=== PATIENT | male | born 1995 | race Caucasian/White ===

== ENCOUNTER 2022-03-18 01:59 | Observation (INO) ==
[2022-03-18] MEDS ORDERED: dilTIAZem HCl 5 MG/ML 5 ML VIAL IV ONE ×2 (02:21→02:28)
[2022-03-18] MEDS ORDERED: STAT IV Infusion **Titration per Protocol STA (02:26)
[2022-03-18] MEDS ORDERED: dilTIAZem HCl 5 MG/ML 5 ML VIAL IV STA (02:26)
--- NOTE | 2022-03-18 02:29 | Emergency Department Note ---
History of Present Illness General Chief complaint: Arrhythmia/Palpitations Stated complaint: RAPID HEARTBEAT Time Seen by Provider: 03/18/22 02:16 History of Present Illness 26-year-old male presents emergency department sudden onset of rapid heart rate. Patient states he was resting and had a sudden onset. Patient has a prior cardiac history in which he had cardiac surgery when he was a child at [facility]. Patient states recent alcohol 2 beers this evening. Patient denies nausea vomiting chest pain patient denies history of thyroid problems. Patient denies shortness of breath. Patient denies pleuritic chest pain denies calf swelling. Denies a history of anemia. Patient denies any history of prior cardiac dysrhythmia. Past Med/Surg History Social History Smoking Status: Current every day smoker Tobacco Type: E-cigarettes / Vaping Feels Safe at Home: Yes Immunizations: Past medical history includes cardiac surgery when he was a child at [facility] for closure related to a valve and the cardiac chambers Review of Systems A total of 10 systems reviewed and were otherwise negative Constitutional: no fever Ear, Nose, Mouth, Throat: no ear pain Respiratory: no cough Cardiovascular: no chest pain Physical Exam Vital Signs Vital Signs - 24 hr 03/18/22 02:03 03/18/22 02:22 03/18/22 02:30 Temperature 36.8 C Temperature Source Temporal Artery Scan Pulse Rate 189 H 175 H 135 H Respiratory Rate 20 23 19 Respiratory Effort / Characteristics Non-Labored Respiratory Depth Normal Blood Pressure 162/83 H 147/77 H 139/83 Blood Pressure Mean 109 100 101 Pulse Oximetry 98 100 99 Oxygen Delivery Method Room Air Room Air Room Air Sepsis Recent Fever Within 48 Hours No Sepsis New/Unexplained Change in Mental Status N/A Sepsis Action Taken by Nursing No Action Required 03/18/22 02:42 03/18/22 02:45 03/18/22 03:00 Temperature Temperature Source Pulse Rate 139 H 108 H 108 H Respiratory Rate 17 19 20 Respiratory Effort / Characteristics Respiratory Depth Blood Pressure 129/71 135/77 132/88 Blood Pressure Mean 90 96 102 Pulse Oximetry 98 98 98 Oxygen Delivery Method Room Air Room Air Room Air Sepsis Recent Fever Within 48 Hours Sepsis New/Unexplained Change in Mental Status Sepsis Action Taken by Nursing 03/18/22 03:15 Temperature Temperature Source Pulse Rate 115 H Respiratory Rate 17 Respiratory Effort / Characteristics Respiratory Depth Blood Pressure 134/87 Blood Pressure Mean 102 Pulse Oximetry 98 Oxygen Delivery Method Room Air Sepsis Recent Fever Within 48 Hours Sepsis New/Unexplained Change in Mental Status Sepsis Action Taken by Nursing GENERAL: Patient is awake alert in no acute distress patient is resting comfortably and showing no signs of anxiety EYES: The conjunctivae are clear. The pupils are round and reactive. EARS, NOSE, MOUTH AND THROAT: The nose is without any evidence of any deformity. Mucous membranes are moist. Tongue is midline. NECK: The neck is nontender and supple. RESPIRATORY: Normal respiratory effort is noted there is no evidence of wheezing rhonchi or rales CARDIOVASCULAR: Tachycardic no murmurs rubs or gallops normal S1 normal S2. GASTROINTESTINAL: The abdomen is soft. Abdomen is nontender. PELVIS: The Pelvis is stable. No tenderness to palpation is noted. BACK: No midline tenderness or or step-off noted range of motion in flexion extension as well as rotation no signs of muscle spasm noted MUSCULOSKELETAL/EXTREMITIES: There is no evidence of gross deformity full range of motion is noted in the hips and shoulders. SKIN: There is no obvious evidence of any rash. There are no petechiae, pallor or cyanosis noted. NEUROLOGIC: Patient is awake alert and oriented x3 strength is symmetric Course Reevaluation(s) Reevaluation #1: Patient was started on IV Cardizem after IV Cardizem bolus x2 remains in atrial fibrillation rate of around 110 but normotensive. Time: 03:55 Consultations Consultation #1: [facility] for admission Time: 03:56 Administered Medications Diltiazem HCl 125 mg/ Dextrose 125 mls @ 5 mls/hr IV .Q24H [facility]; Protocol Stop: 04/17/22 02:29 Last Titration: 03/18/22 03:49 Dose: 10 mg/hr, 10 mls/hr Documented By: PEDRO Co-signed By: NO Admin: 03/18/22 02:41 Dose: 5 mg/hr, 5 mls/hr Documented By: JIMI Co-signed By: PEDRO Discontinued Medications Diltiazem HCl (Diltiazem Hcl 5 Mg/Ml 5 Ml Vial) Confirm Administered Dose 25 mg IV .STK-MED ONE Stop: 03/18/22 02:22 Last Admin: 03/18/22 02:37 Dose: Not Given Documented By: NO Diltiazem HCl (Diltiazem Hcl 5 Mg/Ml 5 Ml Vial) 25 mg IV NOW STA Stop: 03/18/22 02:27 Last Admin: 03/18/22 02:41 Dose: 25 mg Documented By: JIMI Co-signed By: PEDRO Diltiazem HCl (Diltiazem Hcl 5 Mg/Ml 5 Ml Vial) 20 mg IV ONCE ONE Stop: 03/18/22 02:29 Last Admin: 03/18/22 02:20 Dose: 20 mg Documented By: NO Co-signed By: PEDRO Critical Care Time Prolonged Care Time Prolonged Care Time: Yes Total Prolonged Care Time: 45 I have personally spent greater than 45 minutes of critical care time in the direct management of this patient. This includes bedside care, interpretation of diagnostic studies, and testing, discussion with consultants, patient, and family members, and other required patient management activities. These minutes are in excess of all separately billable procedures. Medical Decision Making Medical Records Attestation: I reviewed the patient's medical records. Home Medications Current Medication List: was personally reviewed by me Laboratory Data Attestation: I reviewed the patient's lab results. Result diagrams: 03/18/22 02:26 03/18/22 02:26 Lab Results 03/18/22 03/18/22 03/18/22 Range/Units 02:26 02:26 02:26 WBC 9.16 (4.8-10.8) K/ul RBC 4.84 (4.63-6.08) M/uL Hgb 15.7 (14.0-18.0) g/dl Hct 43.9 (40.1-51.0) % MCV 90.7 (80.0-100.0) fL MCH 32.4 (25.0-34.0) pg MCHC 35.8 (32.0-36.0) g/dL RDW Std Deviation 39.8 (36.4-46.3) fL RDW Coeff of Veronique 12.2 (11.5-14.5) % Plt Count 326 (130-400) K/uL MPV 8.9 L (9.4-12.4) fL Immature Gran % (Auto) 0.2 % Neut % (Auto) 53.7 % Lymph % (Auto) 31.8 % Early % (Auto) 7.3 % Eos % (Auto) 6.2 % Baso % (Auto) 0.8 % Neut # (Auto) 4.92 (1.4-6.5) K/uL Lymph # (Auto) 2.91 (1.2-3.4) K/uL Early # (Auto) 0.67 (0.24-0.82) K/uL Eos # (Auto) 0.57 H (0-0.50) K/uL Baso # (Auto) 0.07 (0-0.2) K/uL Immature Gran # (Auto) 0.02 (0.00-0.02) K/uL PT 10.1 (9.0-12.0) Seconds INR 0.9 (0.9-1.1) Sodium 141 (136-145) mmol/L Potassium 3.8 (3.5-5.1) mmol/L Chloride 106 (98-107) mmol/L Carbon Dioxide 28 (21-32) mmol/L Anion Gap 7 (3-11) BUN 9 (6-23) mg/dl Creatinine 1.25 (0.6-1.4) mg/dl Est Cr Clr Drug Dosing 118.1 ml/min Est GFR ( Amer) 92.2 ml/min Est GFR (Non-Af Amer) 79.5 ml/min BUN/Creatinine Ratio 7.2 L (10-20) Glucose 136 H (70-99(Fasting)) mg/dl Calcium 9.5 (8.5-10.1) mg/dl Magnesium 2.1 (1.7-2.4) mg/dl Total Bilirubin 0.5 (0.2-1.0) mg/dl AST 17 (13-39) U/L ALT 24 (7-52) U/L Alkaline Phosphatase 77 (34-104) U/L Troponin I High Sens 4.2 (0-20) pg/ml Total Protein 7.1 (6.0-8.3) gm/dl Albumin 4.5 (3.4-5.0) gm/dl Globulin 2.6 (2.5-4.0) gm/dl Albumin/Globulin Ratio 1.7 (0.9-2) TSH (0.300-4.500) uIu/ml 11/05/22 Range/Units 02:26 WBC (4.8-10.8) K/ul RBC (4.63-6.08) M/uL Hgb (14.0-18.0) g/dl Hct (40.1-51.0) % MCV (80.0-100.0) fL MCH (25.0-34.0) pg MCHC (32.0-36.0) g/dL RDW Std Deviation (36.4-46.3) fL RDW Coeff of Veronique (11.5-14.5) % Plt Count (130-400) K/uL MPV (9.4-12.4) fL Immature Gran % (Auto) % Neut % (Auto) % Lymph % (Auto) % Early % (Auto) % Eos % (Auto) % Baso % (Auto) % Neut # (Auto) (1.4-6.5) K/uL Lymph # (Auto) (1.2-3.4) K/uL Early # (Auto) (0.24-0.82) K/uL Eos # (Auto) (0-0.50) K/uL Baso # (Auto) (0-0.2) K/uL Immature Gran # (Auto) (0.00-0.02) K/uL PT (9.0-12.0) Seconds INR (0.9-1.1) Sodium (136-145) mmol/L Potassium (3.5-5.1) mmol/L Chloride (98-107) mmol/L Carbon Dioxide (21-32) mmol/L Anion Gap (3-11) BUN (6-23) mg/dl Creatinine (0.6-1.4) mg/dl Est Cr Clr Drug Dosing ml/min Est GFR ( Amer) ml/min Est GFR (Non-Af Amer) ml/min BUN/Creatinine Ratio (10-20) Glucose (70-99(Fasting)) mg/dl Calcium (8.5-10.1) mg/dl Magnesium (1.7-2.4) mg/dl Total Bilirubin (0.2-1.0) mg/dl AST (13-39) U/L ALT (7-52) U/L Alkaline Phosphatase (34-104) U/L Troponin I High Sens (0-20) pg/ml Total Protein (6.0-8.3) gm/dl Albumin (3.4-5.0) gm/dl Globulin (2.5-4.0) gm/dl Albumin/Globulin Ratio (0.9-2) TSH 4.298 (0.300-4.500) uIu/ml Imaging Data Attestation: I personally reviewed and interpreted this imaging study as follows: ECG Data Attestation: I personally reviewed and interpreted this ECG as follows: Additional Comments: EKG interpreted by me rapid atrial fibrillation, incomplete right bundle branch block, left axis deviation, no obvious ST segment elevation or depression MDM Narrative Medical decision making differential diagnosis cardiac dysrhythmia, electrolyte abnormality, metabolic derangement. Plan is to check labs, EKG, treat for rapid atrial fibrillation Impression & Plan Atrial fibrillation with RVR Discharge Plan Visit Data Chief Complaint: Arrhythmia/Palpitations Stated Complaint: RAPID HEARTBEAT ED Provider: Jamar Muro Discharge Problem: Atrial fibrillation with RVR Patient Disposition: Being Evaluated by Hospitalist Forms Stand Alone Forms: [facility] Referrals Referrals: PCP,NO [Primary Care Provider] -
[2022-03-18] MEDS: dilTIAZem HCL 125 MG in DEXTROSE 5% 100 ML IV SCH ×2 (02:41→14:49)
[2022-03-18 02:43] LABS: Basophils # (auto) 0.07 K/uL (0-0.2); Basophils % (auto) 0.8 %; Eosinophils # (auto) 0.57 K/uL (0-0.50); Eosinophils % (auto) 6.2 %; Hematocrit (blood only) 43.9 % (40.1-51.0); Hemoglobin 15.7 g/dl (14.0-18.0); Immature Granulocytes # (auto) 0.02 K/uL (0.00-0.02); Immature Granulocytes % (auto) 0.2 %; Lymphocytes # (auto) 2.91 K/uL (1.2-3.4); Lymphocytes % (auto) 31.8 %; Mean Corpuscular Hemoglobin 32.4 pg (25.0-34.0); Mean Corpuscular Hgb Conc 35.8 g/dL (32.0-36.0); Mean Corpuscular Volume 90.7 fL (80.0-100.0); Mean Platelet Volume 8.9 fL (9.4-12.4); Monocytes # (auto) 0.67 K/uL (0.24-0.82); Monocytes % (auto) 7.3 %; Neutrophils # (auto) 4.92 K/uL (1.4-6.5); Neutrophils % (auto) 53.7 %; Platelet Count 326 K/uL (130-400); RDW Coefficient of Variation 12.2 % (11.5-14.5); RDW Standard Deviation 39.8 fL (36.4-46.3); Red Blood Count 4.84 M/uL (4.63-6.08); White Blood Count 9.16 K/ul (4.8-10.8)
[2022-03-18 03:12] LABS: Troponin I High Sensitivity 4.2 pg/ml (0-20)
[2022-03-18 03:13] LABS: INR 0.9 (0.9-1.1); Prothrombin Time 10.1 Seconds (9.0-12.0)
[2022-03-18 03:17] LABS: Albumin Globulin Ratio 1.7 (0.9-2); Albumin Level 4.5 gm/dl (3.4-5.0); BUN Creatinine Ratio 7.2 (10-20); Bilirubin,Total 0.5 mg/dl (0.2-1.0); Calcium 9.5 mg/dl (8.5-10.1); Creatinine Clr Calc Pharmacy 118.1 ml/min; Est GFR (African American) 92.2 ml/min; Est GFR (Non-African American) 79.5 ml/min; Globulin 2.6 gm/dl (2.5-4.0); Magnesium 2.1 mg/dl (1.7-2.4); Potassium 3.8 mmol/L (3.5-5.1); Total Protein 7.1 gm/dl (6.0-8.3)
[2022-03-18] MEDS ORDERED: POTASSIUM CHLORIDE CRTAB 20 MEQ TABCR PO STA (03:40)
[2022-03-18] MEDS ORDERED: METOPROLOL TARTRATE 25 MG TAB PO STA (03:43)
[2022-03-18] MEDS ORDERED: LACTATED RINGER'S 1,000 ML IV ONE (03:43)
[2022-03-18] MEDS ORDERED: METOPROLOL TARTRATE 1 MG/ML VIAL IV STA (04:30)
--- NOTE | 2022-03-18 04:32 | History & Physical Report ---
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 fib if CT head negative for bleed TTE, Cardiology consult Re: New onset A. fib Check hemoglobin A1c DVT prophylaxis. IV heparin if no bleed on CT head Full code Text document was generated using Contrib recognition software. It may contain grammatical or spelling errors. Kindly contact undersigned for clarification of any documentation item in question. History of Present Illness Chief Complaint: Palpitations, shortness of breath Primary Care Provider: NO PCP History obtained from patient, family, and records. Medical history significant for congenital heart disease (ASD status post surgery, tricuspid valve abnormality as per patient), borderline hypertension as per patient, ongoing tobacco abuse. Patient has had episodic palpitations for about 5 years now. Occurring 3-4 times a year. Short-lived episodes spontaneously resolving. No specific triggers. 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 Victor) aware of palpitations as per patient. Patient relocated to [facility] about 2 years ago for work. Patient was getting ready for bed last night when he experienced palpitations more pronounced and prolonged. Shortness of breath which patient attributes to anxiety. 2 bottles of beer last night which is usual for him. Denies EtOH abuse. No chest pain. Transient headache symptoms. Patient noted to be in rapid A. fib upon arrival at the ER. IV Cardizem infusion initiated. 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 Past Med/Surg History Social History Smoking Status: Light tobacco smoker Tobacco Type: E-cigarettes / Vaping Hx Alcohol Use: Yes (social drinker) Hx Substance Use: No Preferred Language: Norwegian Communication Ability: Effective Seat Maker Required: No Beliefs That Will Affect Care: None Current Living Situation: Significant Other Feels Safe at Home: Yes Safety Concerns: Feels Safe At This Time Review of Systems Review of Systems: As per HPI, all other systems reviewed and negative Physical Exam Physical Exam: GENERAL: Comfortable, obese, slightly anxious, no respiratory distress SKIN: Normal color, warm HEENT: [place] palpebral conjunctivae, no ptosis, dry buccal mucosa NECK : Supple, no tenderness CHEST : CTA, no tenderness HEART : Irregular, tachycardic, no obvious murmurs ABDOMEN: Some distention, nontender EXTREMITIES : No LE swelling/tenderness, no other conspicuous deformities noted NEUROLOGIC : Coherent, no facial asymmetry, no other gross focality Results & Data Results & Data ([facility]) Vital Signs (Past 12 Hours) Vital Signs Temp Pulse Resp BP Pulse Ox O2 Del Method 03/18/22 04:00 107 H 18 151/77 H 99 Room Air 03/18/22 03:45 98 H 16 130/82 99 Room Air 03/18/22 03:30 110 H 16 126/106 H 97 Room Air 03/18/22 03:15 115 H 17 134/87 98 Room Air 03/18/22 03:00 108 H 20 132/88 98 Room Air 03/18/22 02:45 108 H 19 135/77 98 Room Air 03/18/22 02:42 139 H 17 129/71 98 Room Air 03/18/22 02:30 135 H 19 139/83 99 Room Air 03/18/22 02:22 175 H 23 147/77 H 100 Room Air 03/18/22 02:03 36.8 C 189 H 20 162/83 H 98 Room Air Laboratory Results Laboratory Results WBC 9.16 K/ul (4.8-10.8) 03/18/22 02:26 RBC 4.84 M/uL (4.63-6.08) 03/18/22 02:26 Hgb 15.7 g/dl (14.0-18.0) 03/18/22 02:26 Hct 43.9 % (40.1-51.0) 03/18/22 02:26 MCV 90.7 fL (80.0-100.0) 03/18/22 02:26 MCH 32.4 pg (25.0-34.0) 03/18/22 02:26 MCHC 35.8 g/dL (32.0-36.0) 03/18/22 02:26 RDW Std Deviation 39.8 fL (36.4-46.3) 03/18/22 02:26 RDW Coeff of Veronique 12.2 % (11.5-14.5) 03/18/22 02:26 Plt Count 326 K/uL (130-400) 03/18/22 02:26 MPV 8.9 fL (9.4-12.4) L 03/18/22 02:26 Immature Gran % (Auto) 0.2 % 03/18/22 02:26 Neut % (Auto) 53.7 % 03/18/22 02:26 Lymph % (Auto) 31.8 % 03/18/22 02:26 [place]ley % (Auto) 7.3 % 03/18/22 02:26 Eos % (Auto) 6.2 % 03/18/22 02:26 Baso % (Auto) 0.8 % 03/18/22 02:26 Neut # (Auto) 4.92 K/uL (1.4-6.5) 03/18/22 02:26 Lymph # (Auto) 2.91 K/uL (1.2-3.4) 03/18/22 02:26 [place]ley # (Auto) 0.67 K/uL (0.24-0.82) 03/18/22 02:26 Eos # (Auto) 0.57 K/uL (0-0.50) H 03/18/22 02:26 Baso # (Auto) 0.07 K/uL (0-0.2) 03/18/22 02:26 Immature Gran # (Auto) 0.02 K/uL (0.00-0.02) 03/18/22 02:26 PT 10.1 Seconds (9.0-12.0) 03/18/22 02:26 INR 0.9 (0.9-1.1) 03/18/22 02:26 Sodium 141 mmol/L (136-145) 03/18/22 02:26 Potassium 3.8 mmol/L (3.5-5.1) 03/18/22 02:26 Chloride 106 mmol/L (98-107) 03/18/22 02:26 Carbon Dioxide 28 mmol/L (21-32) 03/18/22 02:26 Anion Gap 7 (3-11) 03/18/22 02:26 BUN 9 mg/dl (6-23) 03/18/22 02:26 Creatinine 1.25 mg/dl (0.6-1.4) 03/18/22 02:26 Est Cr Clr Drug Dosing 118.1 ml/min 03/18/22 02:26 Est GFR ( Amer) 92.2 ml/min 03/18/22 02:26 Est GFR (Non-Af Amer) 79.5 ml/min 03/18/22 02:26 BUN/Creatinine Ratio 7.2 (10-20) L 03/18/22 02:26 Glucose 136 mg/dl (70-99(Fasting)) H 03/18/22 02:26 Calcium 9.5 mg/dl (8.5-10.1) 03/18/22 02:26 Magnesium 2.1 mg/dl (1.7-2.4) 03/18/22 02:26 Total Bilirubin 0.5 mg/dl (0.2-1.0) 03/18/22 02:26 AST 17 U/L (13-39) 03/18/22 02:26 ALT 24 U/L (7-52) 03/18/22 02:26 Alkaline Phosphatase 77 U/L (34-104) 03/18/22 02:26 Troponin I High Sens 4.2 pg/ml (0-20) 03/18/22 02:26 Total Protein 7.1 gm/dl (6.0-8.3) 03/18/22 02:26 Albumin 4.5 gm/dl (3.4-5.0) 03/18/22 02:26 Globulin 2.6 gm/dl (2.5-4.0) 03/18/22 02:26 Albumin/Globulin Ratio 1.7 (0.9-2) 03/18/22 02:26 TSH 4.298 uIu/ml (0.300-4.500) 03/18/22 02:26 SARS-CoV-2, RNA, NAAT NEGATIVE (NEGATIVE) 03/18/22 03:57 Diagnostic Findings Chest x-ray as per my interpretation cardiomegaly, atelectasis EKG as per my interpretation : Rate 150, A. fib, LAD, LAFB, incomplete RBBB, T wave abnormality septal leads
[2022-03-18] MEDS ORDERED: LORazepam 0.5 MG TAB PO PRN (04:35)
[2022-03-18] MEDS ORDERED: PROMETHAZINE HCL 12.5 MG in SODIUM CHLORIDE 0.9% 50 ML IV PRN (04:35)
[2022-03-18] MEDS ORDERED: traMADol HCL 50 MG TABLET PO PRN (04:35)
[2022-03-18] MEDS ORDERED: LORazepam 0.5 MG TAB PO STA (04:38)
[2022-03-18] MEDS ORDERED: ACETAMINOPHEN 325 MG TAB PO PRN (05:18)
[2022-03-18] MEDS ORDERED: NITROGLYCERIN SL 0.4 MG/TAB TAB SL PRN (05:18)
[2022-03-18 06:38] LABS: Partial Thromboplastin Ratio 0.9; Partial Thromboplastin Time 25.9 Seconds (21.0-31.0)
--- NOTE | 2022-03-18 08:24 | CT Scan Report ---
CT head/brain wo con CLINICAL HISTORY: dickinson Technique: Contiguous axial CT images of the head were acquired from the base of the skull to the lise kendal without intravenous contrast administration. Images were viewed in brain, subdural and [facility]. Automated dose lowering techniques and/or adjustment according to patient size were utilized for this exam. Comparison: None available at the time of this dictation. Findings: The ventricles, basal cisterns, and cerebral sulci are normal. There is no acute intracranial hemorrh age or evidence of acute territorial infarction. Neither mass effect, shift of the midline structures , nor abnormal extra-axial fluid collections are shown. Imaged portions of the paranasal sinuses and mastoid air cells are clear. The orbits appear normal. There are no acute fractures of the calvaria or scalp swelling. Impression: No acute intracranial hemorrhage, no evidence of acute territorial infarction or other acute intracra nial disease process. ACT 112: Negative or not required by law. Electronically signed by: Chuck Dale M.D. 03/18/2022 8:23 AM
[2022-03-18 09:09] LABS: Estimated Average Glucose 105 mg/dl; Hemoglobin A1C 5.3 % (4.5-5.6)
[2022-03-18] MEDS: Heparin IV Adult Wt-Based Standard *NO* Bolus Protocol IV SCH ×4 (09:21→10:31)
[2022-03-18] MEDS: HEPARIN SODIUM/DEXTROSE 25,000 UNITS/500 ML BAG IV SCH (10:37)
--- NOTE | 2022-03-18 10:42 | Hospitalist Progress Note ---
Date of Service March 18, 2022 Assessment & Plan (1) Atrial fibrillation with RVR: Plan: Atrial fibrillation with RVR New diagnosis H/O Congenital heart disease: ASD s/p surgery, tricuspid valve abnormality as per patient --CXR: No acute findings as per my interpretation --ECHO: Normal LV chamber size and wall thickness. Low normal LV systolic function with borderline global hypokinesis, EF 50 to 55%. No segmental left ventricle wall motion abnormality. Right ventricular cavity is normal. Reduced RV systolic function by TAPSE. Questionable tricuspid annuloplasty ring without significant stenosis or regurgitation. --TSH: Within normal limits -- On IV Cardizem, heparin drip Started on metoprolol 25 mg twice a day Consulted cardiology Currently heart rate is controlled Headache --CT Head:No acute intracranial hemorrhage, no evidence of acute territorial infarction or other acute intracranial disease process. Resolved Borderline hypertension as per patient BP stable Monitor Ongoing tobacco abuse Inventory Clerk to quit smoking DVT Px: IV heparin Code Status Full code Admission and Anticipated Discharge Date Admission Date: March 18, 2022 Subjective Patient is seen and examined at bedside Headache, dyspnea resolved Still has intermittent palpitations Denies any chest pain, dizziness, nausea, abdominal pain Currently heart rate is controlled Offers no other complaints Review of Systems Review of Systems: All systems reviewed & are unremarkable except as noted in Subjective Physical Exam Physical Exam: Physical Exam: Vitals signs as noted above General Appearance:Moderately built and nourished, no apparent distress Head: normocephalic, Atraumatic Eyes: normal inspection, EOMI Neck: supple, Trachea midline Respiratory/Chest: Normal breath sounds, CTA, No accessory muscle use Cardiovascular: Irregularly irregular, No murmur Abdomen/GI:Soft, Non tender, Bowel sounds present Extremities/Musculoskeletal:normal inspection, no edema Neurologic/Psych:AAOX3, grossly no focal neurological deficits Skin: normal color, warm Results & Data Results & Data ([facility]) Vital Signs (Past 12 Hours) Vital Signs Temp Pulse Pulse Pulse Resp BP BP 03/18/22 09:24 71 03/18/22 08:57 73 114/68 03/18/22 07:53 36.8 C 66 19 125/60 03/18/22 06:11 86 03/18/22 06:06 03/18/22 05:00 84 20 140/91 03/18/22 05:18 36.9 C 88 16 142/89 H 03/18/22 04:45 101 H 19 116/94 03/18/22 04:31 107 H 18 164/87 H 03/18/22 04:15 109 H 17 128/89 03/18/22 04:48 105 H 116/94 03/18/22 04:00 107 H 18 151/77 H 03/18/22 03:45 98 H 16 130/82 03/18/22 03:30 110 H 16 126/106 H 03/18/22 03:15 115 H 17 134/87 03/18/22 03:00 108 H 20 132/88 03/18/22 02:45 108 H 19 135/77 03/18/22 02:42 139 H 17 129/71 03/18/22 02:30 135 H 19 139/83 03/18/22 02:22 175 H 23 147/77 H 03/18/22 02:03 36.8 C 189 H 20 162/83 H Pulse Ox O2 Del Method 03/18/22 09:24 03/18/22 08:57 03/18/22 07:53 97 Room Air 03/18/22 06:11 03/18/22 06:06 Room Air 03/18/22 05:00 95 Room Air 03/18/22 05:18 98 Room Air 03/18/22 04:45 98 Room Air 03/18/22 04:31 97 Room Air 03/18/22 04:15 98 Room Air 03/18/22 04:48 03/18/22 04:00 99 Room Air 03/18/22 03:45 99 Room Air 03/18/22 03:30 97 Room Air 03/18/22 03:15 98 Room Air 03/18/22 03:00 98 Room Air 03/18/22 02:45 98 Room Air 03/18/22 02:42 98 Room Air 03/18/22 02:30 99 Room Air 03/18/22 02:22 100 Room Air 03/18/22 02:03 98 Room Air
--- NOTE | 2022-03-18 12:52 | XRay Report ---
XR chest 1V portable CLINICAL HISTORY: Dysrhythmia TECHNIQUE: Single frontal radiograph of the chest was obtained. Comparison: None available at the time of this dictation. FINDINGS: No lines and tubes are seen. Cardiomegaly is noted. The lungs are clear. No evidence of pleural effus ion or pneumothorax. IMPRESSION: No acute chest disease. ACT 112: Negative or not required by law. Electronically signed by: Chuck Dale M.D. 03/18/2022 12:50 PM
--- NOTE | 2022-03-18 13:24 | Electrocardiogram Report ---
Test Reason : Blood Pressure : / mmHG Vent. Rate : 153 BPM Atrial Rate : 159 BPM P-R Int : 000 ms QRS Dur : 110 ms QT Int : 284 ms P-R-T Axes : 000 -13 046 degrees QTc Int : 453 ms Atrial fibrillation with rapid ventricular response Incomplete right bundle branch block Abnormal ECG No previous ECGs available Confirmed by Christiano Zelaya ([id number]) on 03/18/2022 1:23:33 PM Referred By: REFERRED SELF Confirmed By:Christiano Zelaya
[2022-03-18] MEDS ORDERED: METOPROLOL TARTRATE 25 MG TAB PO ONE (13:30)
--- NOTE | 2022-03-18 13:30 | Electrocardiogram Report ---
Test Reason : Blood Pressure : / mmHG Vent. Rate : 097 BPM Atrial Rate : 094 BPM P-R Int : 000 ms QRS Dur : 108 ms QT Int : 300 ms P-R-T Axes : 000 000 046 degrees QTc Int : 381 ms Atrial fibrillation Incomplete right bundle branch block Abnormal ECG When compared with ECG of 18-MAR-2022 02:12, (unconfirmed) Vent. rate has decreased BY [address] no longer depressed in Anterior leads Confirmed by Christiano Zelaya ([id number]) on 03/18/2022 1:29:42 PM Referred By: REFERRED SELF Confirmed By:Christiano Zelaya
--- NOTE | 2022-03-18 14:50 | Cardiology Consultation ---
Date of Consultation March 18, 2022 Assessment & Plan (1) Atrial fibrillation with RVR: (2) History of repair of congenital atrial septal defect (ASD): Plan The pathophysiology and treatment options for atrial fibrillation were discussed with the patient and his parents at great lengths today. Well he is very young to experience new onset atrial fibrillation it is not completely surprising given his history of ASD closure as an adolescent. At this point, I believe the most prudent course of action would be to proceed with transesophageal echocardiogram guided DC cardioversion on Sunday morning. He will be maintained on a heparin drip and likely discharged home on DOAC for 30 days. With his [id number] score being 0 long-term anticoagulation will likely not be necessary Continue p.o. metoprolol tartrate and diltiazem drip for now, the latter of which may be titrated off Follow and replete electrolytes as necessary Patient should be made n.p.o. for anticipated ARIAS cardioversion on 03/20/2022 History of Present Illness Reason for Consultation: New onset atrial fibrillation with rapid ventricular response Requesting Physician: [facility] hospitalist group Attending Physician: Matthew Glasgow MD History of Present Illness It was my pleasure to see Mr. Llamas in cardiac consultation today March 18, 2022. He is a very pleasant 26-year-old gentleman who presented to [facility] early on the a.m. of 03/18/2022 with complaints of palpitations. The patient states he was in his normal state of health until approximately 1 AM when he felt his heart start to race. He states he has had similar episodes in the past but were very fleeting in nature. After this episode persisted for an hour he presented the emergency room for further evaluation. Upon arrival he was found to be in new onset atrial fibrillation with rapid ventricular response which is a new diagnosis for him. He does carry history of ASD closure at the age of 14. 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 He was last seen by his primary communications technician 3 years ago as per recommendations. He has not had any medical care locally. Currently he is resting comfortably with his parents at the bedside. Allergies Allergy/AdvReac Type Severity Reaction Status Date / Time No Known Allergies Allergy Verified 03/18/22 13:44 Patient History Social History Smoking Status: Light tobacco smoker Tobacco Type: E-cigarettes / Vaping Hx Alcohol Use: Yes (social drinker) Hx Substance Use: No Preferred Language: Tamazight Communication Ability: Effective Tooth Cutter Clutch Required: No Beliefs That Will Affect Care: None Current Living Situation: Significant Other Feels Safe at Home: Yes Safety Concerns: Feels Safe At This Time Review of Systems Review of Systems: All systems reviewed & are unremarkable except as noted in HPI & below Physical Exam Physical Exam: General: Awake, alert and oriented x 3. No acute distress. HEENT: Normocephalic, atraumatic. Pupils equal, round and reactive to light and accommodation. Extraocular muscles are intact. Anicteric sclera. Moist mucous membranes. Neck: No JVD. No bruit. Cardiovascular: irregularly irregular, unable to appreciate murmur, rub or gallop. Pulmonary: Clear to auscultation bilaterally. No rales, rhonchi, or wheezing. Abdomen: Bowel sounds x 4, soft. No rebound, guarding or tenderness. No organomegaly. Extremities: No clubbing, cyanosis or edema. +2 pedal pulses bilaterally. Skin: Warm and dry. Results & Data ([facility]) Vital Signs (Past 12 Hours) Vital Signs Temp Pulse Pulse Pulse Resp BP BP 03/18/22 11:27 36.9 C 68 20 123/76 03/18/22 09:24 71 03/18/22 08:57 73 114/68 03/18/22 07:53 36.8 C 66 19 125/60 03/18/22 06:11 86 03/18/22 06:06 03/18/22 05:00 84 20 140/91 03/18/22 05:18 36.9 C 88 16 142/89 H 03/18/22 04:45 101 H 19 116/94 03/18/22 04:31 107 H 18 164/87 H 03/18/22 04:15 109 H 17 128/89 03/18/22 04:48 105 H 116/94 03/18/22 04:00 107 H 18 151/77 H 03/18/22 03:45 98 H 16 130/82 03/18/22 03:30 110 H 16 126/106 H 03/18/22 03:15 115 H 17 134/87 03/18/22 03:00 108 H 20 132/88 03/18/22 02:45 108 H 19 135/77 Pulse Ox O2 Del Method 03/18/22 11:27 97 Room Air 03/18/22 09:24 03/18/22 08:57 03/18/22 07:53 97 Room Air 03/18/22 06:11 03/18/22 06:06 Room Air 03/18/22 05:00 95 Room Air 03/18/22 05:18 98 Room Air 03/18/22 04:45 98 Room Air 03/18/22 04:31 97 Room Air 03/18/22 04:15 98 Room Air 03/18/22 04:48 03/18/22 04:00 99 Room Air 03/18/22 03:45 99 Room Air 03/18/22 03:30 97 Room Air 03/18/22 03:15 98 Room Air 03/18/22 03:00 98 Room Air 03/18/22 02:45 98 Room Air
[2022-03-18 17:31] LABS: Partial Thromboplastin Ratio 1.9
[2022-03-18] MEDS: METOPROLOL TARTRATE 25 MG TAB PO SCH (20:42)
[2022-03-19] MEDS: HEPARIN SODIUM/DEXTROSE 25,000 UNITS/500 ML BAG IV SCH (01:59)
[2022-03-19] MEDS: dilTIAZem HCL 125 MG in DEXTROSE 5% 100 ML IV SCH (04:21)
[2022-03-19 06:53] LABS: Basophils # (auto) 0.06 K/uL (0-0.2); Basophils % (auto) 0.8 %; Eosinophils # (auto) 0.45 K/uL (0-0.50); Eosinophils % (auto) 5.7 %; Hematocrit (blood only) 41.4 % (40.1-51.0); Hemoglobin 14.8 g/dl (14.0-18.0); Immature Granulocytes # (auto) 0.03 K/uL (0.00-0.02); Immature Granulocytes % (auto) 0.4 %; Lymphocytes # (auto) 2.35 K/uL (1.2-3.4); Lymphocytes % (auto) 29.8 %; Mean Corpuscular Hemoglobin 32.2 pg (25.0-34.0); Mean Corpuscular Hgb Conc 35.7 g/dL (32.0-36.0); Mean Platelet Volume 8.9 fL (9.4-12.4); Monocytes # (auto) 0.59 K/uL (0.24-0.82); Monocytes % (auto) 7.5 %; Neutrophils # (auto) 4.41 K/uL (1.4-6.5); Neutrophils % (auto) 55.8 %; Platelet Count 278 K/uL (130-400); RDW Coefficient of Variation 12.3 % (11.5-14.5); RDW Standard Deviation 40.6 fL (36.4-46.3); White Blood Count 7.89 K/ul (4.8-10.8)
[2022-03-19 07:17] LABS: Partial Thromboplastin Ratio 2.9
[2022-03-19 07:35] LABS: BUN Creatinine Ratio 10.4 (10-20); Calcium 9.2 mg/dl (8.5-10.1); Creatinine Clr Calc Pharmacy 137.6 ml/min; Est GFR (African American) 112.5 ml/min; Est GFR (Non-African American) 97.1 ml/min
[2022-03-19 09:24] LABS: Partial Thromboplastin Time 80.9 Seconds (21.0-31.0)
[2022-03-19] MEDS: METOPROLOL TARTRATE 25 MG TAB PO SCH (09:37)
[2022-03-19] MEDS ORDERED: APIXABAN 5 MG TABLET PO SCH (12:00)
--- NOTE | 2022-03-19 12:02 | Hospitalist Progress Note ---
Date of Service March 19, 2022 Assessment & Plan (1) Atrial fibrillation with RVR: Plan: Atrial fibrillation with RVR New diagnosis H/O Congenital heart disease: ASD s/p surgery, tricuspid valve abnormality as per patient --CXR: No acute findings as per my interpretation --ECHO: Normal LV chamber size and wall thickness. Low normal LV systolic function with borderline global hypokinesis, EF 50 to 55%. No segmental left ventricle wall motion abnormality. Right ventricular cavity is normal. Reduced RV systolic function by TAPSE. Questionable tricuspid annuloplasty ring without significant stenosis or regurgitation. --TSH: Within normal limits -- On IV Cardizem, heparin drip>>> transition to Eliquis Continue metoprolol 25 mg twice a day Appreciate Cardiology Input Needs follow-up with cardiology upon discharge Headache --CT Head:No acute intracranial hemorrhage, no evidence of acute territorial infarction or other acute intracranial disease process. Resolved Borderline hypertension as per patient BP stable Monitor Ongoing tobacco abuse [employer] to quit smoking DVT Px: Eliquis Code Status Full code Admission and Anticipated Discharge Date Admission Date: March 18, 2022 Subjective Patient is seen and examined at bedside States feeling well today Palpitations resolved Offers no complaints Denies any chest pain, dizziness, nausea, abdominal pain Review of Systems Review of Systems: All systems reviewed & are unremarkable except as noted in Subjective Physical Exam Physical Exam: Physical Exam: Vitals signs as noted above General Appearance:Moderately built and nourished, no apparent distress Head: normocephalic, Atraumatic Eyes: normal inspection, EOMI Neck: supple, Trachea midline Respiratory/Chest: Normal breath sounds, CTA, No accessory muscle use Cardiovascular: s1, s2, No murmur Abdomen/GI:Soft, Non tender, Bowel sounds present Extremities/Musculoskeletal:normal inspection, no edema Neurologic/Psych:AAOX3, grossly no focal neurological deficits Skin: normal color, warm Results & Data Results & Data ([place]) Vital Signs (Past 12 Hours) Vital Signs Temp Pulse Pulse Resp BP Pulse Ox O2 Del Method 03/19/22 07:54 37.1 C 62 18 130/54 L 97 Room Air 03/19/22 07:39 77 03/19/22 02:08 36.4 C L 78 18 129/80 98 Room Air Laboratory Results Short CBC 03/19/22 Range/Units 06:28 WBC 7.89 (4.8-10.8) K/ul Hgb 14.8 (14.0-18.0) g/dl Hct 41.4 (40.1-51.0) % Plt Count 278 (130-400) K/uL [facility] 03/19/22 06:28 Sodium 140 Potassium 4.0 Chloride 107 Carbon Dioxide 28 BUN 11 Creatinine 1.06 Glucose 106 H Calcium 9.2
--- NOTE | 2022-03-19 14:05 | Electrocardiogram Report ---
Test Reason : Blood Pressure : / mmHG Vent. Rate : 059 BPM Atrial Rate : 059 BPM P-R Int : 192 ms QRS Dur : 116 ms QT Int : 390 ms P-R-T Axes : 022 -06 032 degrees QTc Int : 386 ms Sinus bradycardia Incomplete right bundle branch block Borderline ECG When compared with ECG of 18-MAR-2022 08:45, Sinus rhythm has replaced Atrial fibrillation Vent. rate has decreased BY 38 BPM Confirmed by Christiano Zelaya ([id number]) on 03/19/2022 2:04:39 PM Referred By: REFERRED SELF Confirmed By:Christiano Zelaya
--- NOTE | 2022-03-19 14:09 | Cardiology Progress Note ---
Date of Service March 19, 2022 Assessment & Plan (1) Atrial fibrillation with RVR: (2) History of repair of congenital atrial septal defect (ASD): Plan The pathophysiology and treatment options for atrial fibrillation were discussed with the patient and his parents at great lengths today. Well he is very young to experience new onset atrial fibrillation it is not completely surprising given his history of ASD closure as an adolescent. The patient spontaneously converted to normal sinus rhythm on 03/18/2022. Okay to discharge to home at this time. Recommend discharging home with prescriptions for Eliquis 5 mg p.o. twice daily and metoprolol succinate 25 mg p.o. daily. My office will call to arrange follow-up with me as an outpatient in 1 month. Admission and Anticipated Discharge Date Admission Date: March 18, 2022 Subjective Patient seen and examined. Chart reviewed. Telemetry reviewed. States that he feels back to normal today. Review of Systems Review of Systems: All systems reviewed & are unremarkable except as noted in HPI & below Physical Exam Physical Exam: Physical Exam: General: Awake, alert and oriented x 3. No acute distress. HEENT: Normocephalic, atraumatic. Pupils equal, round and reactive to light and accommodation. Extraocular muscles are intact. Anicteric sclera. Moist mucous membranes. Neck: No JVD. No bruit. Cardiovascular: Regular. No S-4. Normal S-1 and S-2. No S-3. No murmurs, rubs or gallops. Pulmonary: Clear to auscultation bilaterally. No rales, rhonchi, or wheezing. Abdomen: Bowel sounds x 4, soft. No rebound, guarding or tenderness. No organomegaly. Extremities: No clubbing, cyanosis or edema. +2 pedal pulses bilaterally. Skin: Warm and dry. Results & Data ([facility]) Vital Signs (Past 12 Hours) Vital Signs Temp Pulse Pulse Resp BP Pulse Ox O2 Del Method 03/19/22 13:15 36.8 C 52 L 17 131/62 98 Room Air 03/19/22 07:54 37.1 C 62 18 130/54 L 97 Room Air 03/19/22 07:39 77 03/19/22 02:08 36.4 C L 78 18 129/80 98 Room Air
--- NOTE | 2022-03-19 14:14 | Discharge Summary ---
Date of Service March 19, 2022 Admission HPI Per Admitting Provider History obtained from patient, family, and records. Medical history significant for congenital heart disease (ASD status post surgery, tricuspid valve abnormality as per patient), borderline hypertension as per patient, ongoing tobacco abuse. Patient has had episodic palpitations for about 5 years now. Occurring 3-4 times a year. Short-lived episodes spontaneously resolving. No specific triggers. 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 Victor) aware of palpitations as per patient. Patient relocated to [facility] about 2 years ago for work. Patient was getting ready for bed last night when he experienced palpitations more pronounced and prolonged. Shortness of breath which patient attributes to anxiety. 2 bottles of beer last night which is usual for him. Denies EtOH abuse. No chest pain. Transient headache symptoms. Patient noted to be in rapid A. fib upon arrival at the ER. IV Cardizem infusion initiated. 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 Admission Exam Per Admitting Provider GENERAL: Comfortable, obese, slightly anxious, no respiratory distress SKIN: Normal color, warm HEENT: [place] palpebral conjunctivae, no ptosis, dry buccal mucosa NECK : Supple, no tenderness CHEST : CTA, no tenderness HEART : Irregular, tachycardic, no obvious murmurs ABDOMEN: Some distention, nontender EXTREMITIES : No LE swelling/tenderness, no other conspicuous deformities noted NEUROLOGIC : Coherent, no facial asymmetry, no other gross focality Principal Diagnosis Atrial fibrillation with rapid ventricular response Discharge Data Allergies Allergy/AdvReac Type Severity Reaction Status Date / Time No Known Allergies Allergy Verified 03/18/22 13:44 Consultations 03/18/22 03:51 ED Decision to Admit Stat 03/18/22 05:18 Consult Cardiology Routine Procedures Performed Laboratory Results WBC 7.89 K/ul (4.8-10.8) 03/19/22 06:28 RBC 4.60 M/uL (4.63-6.08) L 03/19/22 06:28 Hgb 14.8 g/dl (14.0-18.0) 03/19/22 06:28 Hct 41.4 % (40.1-51.0) 03/19/22 06:28 MCV 90.0 fL (80.0-100.0) 03/19/22: MCH 32.2 pg (25.0-34.0) 03/19/22: MCHC 35.7 g/dL (32.0-36.0) 03/19/22 RDW Std Deviation 40.6 fL (36.4-46.3) 03/19/22 RDW Coeff of Veronique 12.3 % (11.5-14.5) 03/19/22 Plt Count 278 K/uL (130-400) 03/19/22: MPV 8.9 fL (9.4-12.4) L 03/19/22 Immature Gran % (Auto) 0.4 % 03/19/22 Neut % (Auto) 55.8 % 03/19/22 Lymph % (Auto) 29.8 % 03/19/22 West[place] % (Auto) 7.5 % 03/19/22 Eos % (Auto) 5.7 % 03/19/22 Baso % (Auto) 0.8 % 03/19/22 Neut # (Auto) 4.41 K/uL (1.4-6.5) 03/19/22: Lymph # (Auto) 2.35 K/uL (1.2-3.4) 03/19/22: [place] # (Auto) 0.59 K/uL (0.24-0.82) 03/19/22: Eos # (Auto) 0.45 K/uL (0-0.50) 03/19/22: Baso # (Auto) 0.06 K/uL (0-0.2) 03/19/22: Immature Gran # (Auto) 0.03 K/uL (0.00-0.02) H 03/19/22: PT 10.1 Seconds (9.0-12.0) 03/18/22 02: INR 0.9 (0.9-1.1) 03/18/22 02: APTT 80.9 Seconds (21.0-31.0) H* 03/19/22: PTT Ratio 2.9 11/06/22 06:28 Sodium 140 mmol/L (136-145) 03/19/22 06:28 Potassium 4.0 mmol/L (3.5-5.1) 03/19/22 06:28 Chloride 107 mmol/L (98-107) 03/19/22 06:28 Carbon Dioxide 28 mmol/L (21-32) 03/19/22 06:28 Anion Gap 5 (3-11) 03/19/22 06:28 BUN 11 mg/dl (6-23) 03/19/22 06:28 Creatinine 1.06 mg/dl (0.6-1.4) 03/19/22 06:28 Est Cr Clr Drug Dosing 137.6 ml/min 03/19/22 06:28 Est GFR ( Amer) 112.5 ml/min 03/19/22 06:28 Est GFR (Non-Af Amer) 97.1 ml/min 03/19/22 06:28 BUN/Creatinine Ratio 10.4 (10-20) 03/19/22 06:28 Glucose 106 mg/dl (70-99(Fasting)) H 03/19/22 06:28 Estimat Average Glucose 105 mg/dl 03/18/22 02:26 Hemoglobin A1c 5.3 % (4.5-5.6) 03/18/22 02:26 Calcium 9.2 mg/dl (8.5-10.1) 03/19/22 06:28 Magnesium 2.0 mg/dl (1.7-2.4) 03/19/22 06:28 Total Bilirubin 0.5 mg/dl (0.2-1.0) 03/18/22 02:26 AST 17 U/L (13-39) 03/18/22 02:26 ALT 24 U/L (7-52) 03/18/22 02:26 Alkaline Phosphatase 77 U/L (34-104) 03/18/22 02:26 Troponin I High Sens 4.2 pg/ml (0-20) 03/18/22 02:26 Total Protein 7.1 gm/dl (6.0-8.3) 03/18/22 02:26 Albumin 4.5 gm/dl (3.4-5.0) 03/18/22 02:26 Globulin 2.6 gm/dl (2.5-4.0) 03/18/22 02:26 Albumin/Globulin Ratio 1.7 (0.9-2) 03/18/22 02:26 TSH 4.298 uIu/ml (0.300-4.500) 03/18/22 02:26 SARS-CoV-2, RNA, NAAT NEGATIVE (NEGATIVE) 03/18/22 03:57 Impressions Chest X-Ray 03/18/22 02:17 XR chest 1V portable CLINICAL HISTORY: Dysrhythmia TECHNIQUE: Single frontal radiograph of the chest was obtained. Comparison: None available at the time of this dictation. FINDINGS: No lines and tubes are seen. Cardiomegaly is noted. The lungs are clear. No evidence of pleural effusion or pneumothorax. IMPRESSION: No acute chest disease. ACT 112: Negative or not required by law. Electronically signed by: Chuck Dale M.D. 03/18/2022 12:[address] 03/18/22 04:30 CT head/brain wo con CLINICAL HISTORY: dickinson Technique: Contiguous axial CT images of the head were acquired from the base of the skull to the vertex without intravenous contrast administration. Images were viewed in brain, subdural and bone windows. Automated dose lowering techniques and/or adjustment according to patient size were utilized for this exam. Comparison: None available at the time of this dictation. Findings: The ventricles, basal cisterns, and cerebral sulci are normal. There is no acute intracranial hemorrhage or evidence of acute territorial infarction. Neither mass effect, shift of the midline structures, nor abnormal extra-axial fluid collections are shown. Imaged portions of the paranasal sinuses and mastoid air cells are clear. The orbits appear normal. There are no acute fractures of the calvaria or scalp swelling. Impression: No acute intracranial hemorrhage, no evidence of acute territorial infarction or other acute intracranial disease process. ACT 112: Negative or not required by law. Electronically signed by: Chuck Dale M.D. 03/18/2022 8:23 AM Ordered Studies 03/18/22 04:30 CT head/brain wo con Urgent Hospital Course (1) Atrial fibrillation with RVR: Atrial fibrillation with RVR New diagnosis H/O Congenital heart disease: ASD s/p surgery, tricuspid valve abnormality as per patient --CXR: No acute findings as per my interpretation --ECHO: Normal LV chamber size and wall thickness. Low normal LV systolic function with borderline global hypokinesis, EF 50 to 55%. No segmental left ventricle wall motion abnormality. Right ventricular cavity is normal. Reduced RV systolic function by TAPSE. Questionable tricuspid annuloplasty ring without significant stenosis or regurgitation. --TSH: Within normal limits -- On IV Cardizem, heparin drip>>> transition to Eliquis Continue metoprolol 25 mg twice a day Appreciate Cardiology Input Needs follow-up with cardiology upon discharge Headache --CT Head:No acute intracranial hemorrhage, no evidence of acute territorial infarction or other acute intracranial disease process. 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 DVT Px: Eliquis Code Status Full code Total Time Total Time Spent Total Time Spent (In Minutes): 46 minutes Discharge Plan Discharge Items Patient Disposition: Home - Self-Care Reason For Visit: AF Discharge Diagnosis: Atrial fibrillation with rapid ventricular response Activity: Per Instructions section Exercise/Sports: Wait until after follow-up appointment Non-emergency contact: Primary Care Provider and Non Categorical Preschool Teacher Call non-emergency contact if: you have any medication questions, your symptoms worsen, your pain is concerning for you and you have a fever Follow-up/Referrals: PCP,NO [Primary Care Provider] - Diet: Heart Healthy Addtl Attending Provider Instructions: Follow-up with your primary care physician in 1 week Follow-up with your facilities coordinator as recommended Seek immediate medical attention if your symptoms reoccur or worsen Please take all medications as instructed on discharge list below. Please call if you have any questions or problems. You can reach a [facility] hospitalist on duty at [facility] 24 hours a day by calling [phone] Pending Studies at Discharge: No Stand-Alone Forms: My [facility] [employer], Smoking Cessation Medications and DC Order Prescriptions: New Eliquis 5 mg Tablet 5 mg PO BID Qty: 60 0RF metoprolol succinate 25 mg tablet extended release 24 hr 25 mg PO DAILY Qty: 30 1RF Discharge Orders: Discharge Order (Routine); Ordered 03/19/22 Ordered By: Matthew Glasgow Admission Data Admit Date/Time: 03/18/22 04:33 Attending Provider: Matthew Glasgow Admit Provider: Izaiah Uribe Primary Care Provider: PCP,NO Other Providers: Izaiah Uribe ; Jamar Severino ; Chaitanay Hunter ; Austin Hamilton ; Sai Jensen ; Dedrick Leonard. ; Monty Bragg ; Joyce Calderon ; Brooke Hill ; Deana Fraire. ; Manas Williamson
== END 2022-03-19 15:06 | disposition home or self-care (01) | DRG 310 ==
LOC: ED 01:59 → INTOOBSV 04:33 → 2E 04:33

== ENCOUNTER 2022-08-01 22:06 | Observation (INO) ==
[2022-08-01] MEDS ORDERED: SODIUM CHLORIDE 0.9% 1000ML 1,000 ML IV STA (22:19)
[2022-08-01] MEDS ORDERED: METOPROLOL TARTRATE 1 MG/ML VIAL IV STA ×3 (22:24→23:38)
--- NOTE | 2022-08-01 22:27 | Emergency Department Note ---
Impression & Plan Atrial fibrillation with RVR, History of repair of congenital atrial septal defect (ASD), Palpitations ED Provider Note NAME: SATYA PIKE AGE: 26 SEX: M : 1995 ARRIVES VIA: Walk-In INFORMANT: Patient, ED PROVIDER(S): Dustin Johnson DO CHIEF COMPLAINT: Palpitations HPI: The patient is a 26-year-old male who presented to the emergency department for palpitations. The patient is a history of atrial fibrillation. He has a history of ASD repair in the past. The patient states that he was getting ready to go to bed when he felt his heart start racing. This occurred prior to arrival. The patient does take a beta-mariano. The patient denies having any nausea or vomiting. He has not been ill recently. He does have some discomfort in his upper chest but at this time denies having any lower extremity swelling or shortness of breath. ROS: See above HPI for pertinent positives & negatives. A total of 10 systems reviewed and were otherwise negative. PAST MEDICAL HISTORY: See Below PAST SURGICAL HISTORY: See Below FAMILY HISTORY: See Below SOCIAL HISTORY: See Below HOME MEDICATIONS: See Below ALLERGIES: See Below VITALS: See Below PHYSICAL EXAMINATION: GENERAL: Patient is awake alert in no acute distress patient is resting comfortably and showing no signs of anxiety EYES: The conjunctivae are clear. The pupils are round and reactive. EARS, NOSE, MOUTH AND THROAT: The nose is without any evidence of any deformity. Mucous membranes are moist. Tongue is midline. NECK: The neck is nontender and supple. RESPIRATORY: Normal respiratory effort is noted there is no evidence of wheezing rhonchi or rales CARDIOVASCULAR: Tachycardic and irregular heart sounds were noted auscultation. There is no definite murmur. GASTROINTESTINAL: The abdomen is soft. Abdomen is nontender. MUSCULOSKELETAL/EXTREMITIES: There is no evidence of gross deformity full range of motion is noted in the hips and shoulders. SKIN: There is no obvious evidence of any rash. There are no petechiae, pallor or cyanosis noted. NEUROLOGIC: Patient is awake alert and oriented x3 MEDICAL DECISION MAKING: The patient is a 26-year-old male who presented to the emergency department for an evaluation of palpitations. The patient is a history of ASD repair when he was younger. Last fall he had an episode of atrial fibrillation with RVR. The patient was reevaluated multiple times. He was treated with IV fluids as well as IV Lopressor in the emergency department. On reevaluation his rate had improved but he still had atrial fibrillation. I discussed patient's laboratory and radiographic studies with him. [facility] have agreed to evaluate the patient in the emergency department for further management and disposition. Triage Nursing notes reviewed. Prior medical records reviewed Vital Signs: reviewed and remarkable for tachycardia. Differential diagnosis: Premature contractions, electrolyte abnormality, cardiac dysrhythmia, thyroid dysfunction, pulmonary embolism, infection, gastrointestinal, as well as other pathologies. ER treatment provided: See below Diagnostics interpreted by me: ECG: EKG was obtained in the emergency department. My interpretation is atrial fibrillation at 150 bpm. Incomplete right bundle branch block pattern was noted. There is no PVCs noted. This was compared to a tracing from March 19, 2022. There is no significant change in the QRST morphology however the atrial fibrillation has replaced sinus rhythm. Cardiac Monitoring: An order was placed for continuous cardiac monitoring. The monitor shows a rate of 105 bpm with atrial fibrillation Laboratory studies: As stated above and show below. Imaging studies: See below. Radiographic imaging was reviewed by myself Consultation(s): I discussed this case with Dr. Gautam who [facility] ED COURSE: Procedures: none Critical Care: I have personally spent greater than 45 minutes of critical care time in the direct management of this patient. This includes bedside care, interpretation of diagnostic studies, and testing, discussion with consultants, patient, and family members, and other required patient management activities. This 45 minutes is in excess of all separately billable procedures. Past Med/Surg History Medical History Atrial fibrillation with RVR Surgical History History of repair of congenital atrial septal defect (ASD) Social History Smoking Status: Never smoker Tobacco Type: E-cigarettes / Vaping Hx Alcohol Use: Yes (social drinker) Hx Substance Use: No Preferred Language: British Communication Ability: Effective Investigative Reporter Required: No Beliefs That Will Affect Care: None marital status: Single Current Living Situation: Significant Other Feels Safe at Home: Yes Assistive Devices: None Allergies Allergies Allergy/AdvReac Type Severity Reaction Status Date / Time No Known Allergies Allergy Verified 08/02/22 00:11 Home Meds Home Medications Medication Instructions Recorded Confirmed metoprolol tartrate 25 mg tablet 12.5 mg PO BID 08/02/22 08/02/22 Results & Data (ED) Vital Signs Vital Signs - 24 hr 08/01/22 22:07 08/01/22 22:24 08/01/22 22:27 Temperature 36.4 C L Temperature Source Temporal Artery Scan Pulse Rate 164 H 145 H Pulse Rate [Apical] 143 H Pulse Rate from SpO2 Sensor Respiratory Rate 20 18 Respiratory Effort / Characteristics Non-Labored Spontaneous Respiratory Depth Normal Blood Pressure 153/86 H Blood Pressure [Left Arm] 114/73 Blood Pressure Mean 108 Blood Pressure Mean [Left Arm] 86 Blood Pressure Position Sitting Pulse Oximetry 98 96 Oxygen Delivery Method Room Air Room Air Sepsis Recent Fever Within 48 Hours No Sepsis New/Unexplained Change in Mental Status No Sepsis Action Taken by Nursing No Action Required 08/01/22 22:30 08/01/22 22:52 08/01/22 23:17 Temperature Temperature Source Pulse Rate 138 H 94 H Pulse Rate [Apical] 130 H Pulse Rate from SpO2 Sensor Respiratory Rate 20 Respiratory Effort / Characteristics Respiratory Depth Blood Pressure 126/95 111/78 Blood Pressure [Left Arm] 119/80 Blood Pressure Mean Blood Pressure Mean [Left Arm] 93 Blood Pressure Position Pulse Oximetry 97 Oxygen Delivery Method Sepsis Recent Fever Within 48 Hours Sepsis New/Unexplained Change in Mental Status Sepsis Action Taken by Nursing 08/01/22 23:00 08/01/22 23:15 08/01/22 23:30 Temperature Temperature Source Pulse Rate 138 H 113 H 100 H Pulse Rate [Apical] Pulse Rate from SpO2 Sensor 186 H 186 H 178 H Respiratory Rate 17 23 16 Respiratory Effort / Characteristics Respiratory Depth Blood Pressure 100/67 111/78 121/93 Blood Pressure [Left Arm] Blood Pressure Mean 78 89 102 Blood Pressure Mean [Left Arm] Blood Pressure Position Pulse Oximetry 96 96 96 Oxygen Delivery Method Sepsis Recent Fever Within 48 Hours Sepsis New/Unexplained Change in Mental Status Sepsis Action Taken by Nursing 08/01/22 23:55 08/02/22 00:00 Temperature Temperature Source Pulse Rate 132 H 105 H Pulse Rate [Apical] Pulse Rate from SpO2 Sensor 88 Respiratory Rate 22 Respiratory Effort / Characteristics Respiratory Depth Blood Pressure 121/93 122/79 Blood Pressure [Left Arm] Blood Pressure Mean 93 Blood Pressure Mean [Left Arm] Blood Pressure Position Pulse Oximetry 96 Oxygen Delivery Method Sepsis Recent Fever Within 48 Hours Sepsis New/Unexplained Change in Mental Status Sepsis Action Taken by [facility] Medications Current Medication List: was personally reviewed by me Laboratory Data Attestation: I reviewed the patient's lab results. 08/01/22 22:26 08/01/22 22: Lab Results 08/01/22 08/01/22 08/01/22 Range/Units 22:26 22: 22: WBC 11.21 H (4.8-10.8) K/ul RBC 4.96 (4.70-6.10) M/uL Hgb 16.1 (14.0-18.0) g/dl Hct 44.1 (42.0-52.0) % MCV 88.9 (80.0-100.0) fL MCH 32.5 (25.0-34.0) pg MCHC 36.5 H (32.0-36.0) g/dL RDW Std Deviation 37.7 (36.4-46.3) fL RDW Coeff of Veronique 11.8 (11.5-14.5) % Plt Count 305 (130-400) K/uL MPV 9.3 L (9.4-12.4) fL Immature Gran % (Auto) 0.3 % Neut % (Auto) 57.6 % Lymph % (Auto) 28.3 % [place] % (Auto) 7.3 % Eos % (Auto) 5.8 % Baso % (Auto) 0.7 % Neut # (Auto) 6.46 (1.40-6.50) K/uL Lymph # (Auto) 3.17 (1.2-3.4) K/uL [place] # (Auto) 0.82 H (0.11-0.59) K/uL Eos # (Auto) 0.65 H (0-0.50) K/uL Baso # (Auto) 0.08 (0-0.2) K/uL Immature Gran # (Auto) 0.03 (0.01-0.20) K/uL PT 10.6 (9.0-12.0) Seconds INR 1.0 (0.9-1.1) APTT 27.0 (21.0-31.0) Seconds PTT Ratio 1.0 Sodium 141 (136-145) mmol/L Potassium 3.6 (3.5-5.1) mmol/L Chloride 102 (98-107) mmol/L Carbon Dioxide 31 (21-32) mmol/L Anion Gap 8 (3-11) BUN 22 (6-23) mg/dl Creatinine 1.31 (0.6-1.4) mg/dl Est Cr Clr Drug Dosing 112.5 ml/min Est GFR ( Amer) 87.1 ml/min Est GFR (Non-Af Amer) 75.1 ml/min BUN/Creatinine Ratio 16.8 (10-20) Glucose 116 H (70-99(Fasting)) mg/dl Calcium 9.6 (8.5-10.1) mg/dl Magnesium 2.0 (1.7-2.4) mg/dl Total Bilirubin 0.6 (0.2-1.0) mg/dl AST 18 (13-39) U/L ALT 25 (7-52) U/L Alkaline Phosphatase 76 (34-104) U/L Troponin I High Sens 4.3 (0-20) pg/ml Total Protein 7.2 (6.0-8.3) gm/dl Albumin 4.4 (3.4-5.0) gm/dl Globulin 2.8 (2.5-4.0) gm/dl Albumin/Globulin Ratio 1.6 (0.9-2) TSH (0.300-4.500) uIu/ml 08/01/22 Range/Units 22:26 WBC (4.8-10.8) K/ul RBC (4.70-6.10) M/uL Hgb (14.0-18.0) g/dl Hct (42.0-52.0) % MCV (80.0-100.0) fL MCH (25.0-34.0) pg MCHC (32.0-36.0) g/dL RDW Std Deviation (36.4-46.3) fL RDW Coeff of Veronique (11.5-14.5) % Plt Count (130-400) K/uL MPV (9.4-12.4) fL Immature Gran % (Auto) % Neut % (Auto) % Lymph % (Auto) % [place] % (Auto) % Eos % (Auto) % Baso % (Auto) % Neut # (Auto) (1.40-6.50) K/uL Lymph # (Auto) (1.2-3.4) K/uL [place] # (Auto) (0.11-0.59) K/uL Eos # (Auto) (0-0.50) K/uL Baso # (Auto) (0-0.2) K/uL Immature Gran # (Auto) (0.01-0.20) K/uL PT (9.0-12.0) Seconds INR (0.9-1.1) APTT (21.0-31.0) Seconds PTT Ratio Sodium (136-145) mmol/L Potassium (3.5-5.1) mmol/L Chloride (98-107) mmol/L Carbon Dioxide (21-32) mmol/L Anion Gap (3-11) BUN (6-23) mg/dl Creatinine (0.6-1.4) mg/dl Est Cr Clr Drug Dosing ml/min Est GFR ( Amer) ml/min Est GFR (Non-Af Amer) ml/min BUN/Creatinine Ratio (10-20) Glucose (70-99(Fasting)) mg/dl Calcium (8.5-10.1) mg/dl Magnesium (1.7-2.4) mg/dl Total Bilirubin (0.2-1.0) mg/dl AST (13-39) U/L ALT (7-52) U/L Alkaline Phosphatase (34-104) U/L Troponin I High Sens (0-20) pg/ml Total Protein (6.0-8.3) gm/dl Albumin (3.4-5.0) gm/dl Globulin (2.5-4.0) gm/dl Albumin/Globulin Ratio (0.9-2) TSH 2.913 (0.300-4.500) uIu/ml Administered Medications Discontinued Medications Sodium Chloride (Nss 1000ml) 1,000 mls @ 999 mls/hr IV .Q1H1M STA Stop: 08/01/22 23:19 Last Infusion: 08/01/22 23:28 Dose: 0 mls/hr Documented By: Admin: 08/01/22 22:24 Dose: 999 mls/hr Documented By: GREG Metoprolol Tartrate (Metoprolol Tartrate 1 Mg/Ml Vial) 5 mg IV NOW STA Stop: 08/01/22 22:25 Last Admin: 08/01/22 22:30 Dose: 5 mg Documented By: GREG Metoprolol Tartrate (Metoprolol Tartrate 1 Mg/Ml Vial) 5 mg IV NOW STA Stop: 08/01/22 22:49 Last Admin: 08/01/22 23:17 Dose: 5 mg Documented By: SANIYA Metoprolol Tartrate (Metoprolol Tartrate 1 Mg/Ml Vial) 5 mg IV NOW STA Stop: 08/01/22 23:39 Last Admin: 08/01/22 23:55 Dose: 5 mg Documented By: SANIYA Imaging Data Attestation: I personally reviewed and interpreted this imaging study as follows: My Impression: 1 view chest x-ray was obtained in the emergency department. My interpretation is no definite infiltrate, no free air, final report is pending. Discharge Plan Visit Data Chief Complaint: Arrhythmia/Palpitations Stated Complaint: A-FIB, ED Provider: Dustin Johnson Discharge Problem: Atrial fibrillation with RVR, History of repair of congenital atrial septal defect (ASD), Palpitations Patient Disposition: Being Evaluated by Hospitalist Forms Stand Alone Forms: My [facility] Prescriptions Prescriptions: No Action metoprolol tartrate 25 mg tablet 12.5 mg PO BID Referrals Referrals: PCP,NO [Physician] -
[2022-08-01 22:48] LABS: Basophils # (auto) 0.08 K/uL (0-0.2); Basophils % (auto) 0.7 %; Eosinophils # (auto) 0.65 K/uL (0-0.50); Eosinophils % (auto) 5.8 %; Hematocrit (blood only) 44.1 % (42.0-52.0); Hemoglobin 16.1 g/dl (14.0-18.0); Immature Granulocytes # (auto) 0.03 K/uL (0.01-0.20); Immature Granulocytes % (auto) 0.3 %; Lymphocytes # (auto) 3.17 K/uL (1.2-3.4); Lymphocytes % (auto) 28.3 %; Mean Corpuscular Hemoglobin 32.5 pg (25.0-34.0); Mean Corpuscular Hgb Conc 36.5 g/dL (32.0-36.0); Mean Corpuscular Volume 88.9 fL (80.0-100.0); Mean Platelet Volume 9.3 fL (9.4-12.4); Monocytes # (auto) 0.82 K/uL (0.11-0.59); Monocytes % (auto) 7.3 %; Neutrophils # (auto) 6.46 K/uL (1.40-6.50); Neutrophils % (auto) 57.6 %; Platelet Count 305 K/uL (130-400); RDW Coefficient of Variation 11.8 % (11.5-14.5); RDW Standard Deviation 37.7 fL (36.4-46.3); Red Blood Count 4.96 M/uL (4.70-6.10); White Blood Count 11.21 K/ul (4.8-10.8)
[2022-08-01 23:10] LABS: Albumin Globulin Ratio 1.6 (0.9-2); Albumin Level 4.4 gm/dl (3.4-5.0); BUN Creatinine Ratio 16.8 (10-20); Bilirubin,Total 0.6 mg/dl (0.2-1.0); Calcium 9.6 mg/dl (8.5-10.1); Creatinine Clr Calc Pharmacy 112.5 ml/min; Est GFR (African American) 87.1 ml/min; Est GFR (Non-African American) 75.1 ml/min; Globulin 2.8 gm/dl (2.5-4.0); Potassium 3.6 mmol/L (3.5-5.1); Total Protein 7.2 gm/dl (6.0-8.3)
[2022-08-01 23:12] LABS: Prothrombin Time 10.6 Seconds (9.0-12.0)
[2022-08-01 23:17] LABS: Troponin I High Sensitivity 4.3 pg/ml (0-20)
[2022-08-02] MEDS ORDERED: Heparin IV Adult Wt-Based Low-Dose *NO* Bolus Protocol IV SCH (02:46)
[2022-08-02] MEDS ORDERED: METOPROLOL TARTRATE 1 MG/ML VIAL IV PRN (02:46)
[2022-08-02] MEDS ORDERED: POLYETHYLENE (MIRALAX) 17 GM PACK PO PRN (02:46)
[2022-08-02] MEDS ORDERED: ACETAMINOPHEN 325 MG TAB PO PRN (02:46)
[2022-08-02] MEDS ORDERED: HEPARIN SODIUM/DEXTROSE 25,000 UNITS/500 ML BAG IV SCH (02:46)
[2022-08-02] MEDS ORDERED: NITROGLYCERIN SL 0.4 MG/TAB TAB SL PRN (02:46)
--- NOTE | 2022-08-02 03:02 | History and Physical Report ---
DATE OF ADMISSION: 08/02/2022. CHIEF COMPLAINT: Rapid AFib. HISTORY OF PRESENT ILLNESS: This is a 26-year-old male with past medical history significant for atrial septal defect, status post repair, tricuspid valve abnormality, history of borderline hypertension. The patient has history of atrial fibrillation, presents with rapid atrial fibrillation. The patient had new-onset atrial fibrillation in March of 2022. At that time, echo was done, which showed borderline global hypokinesis with EF of 50% to 55%. No segmental wall motion abnormalities, questionable tricuspid annuloplasty ring without significant stenosis or regurgitation. He was discharged at that time on metoprolol succinate 25 mg p.o. daily and Eliquis 5 mg p.o. b.i.d. He followed with cardiology on first week of April and as metoprolol succinate was making him very tired and run down, it was switched to tartrate 12.5 mg p.o. b.i.d. and Eliquis was stopped because of his CHADS-VASc score of 0. The patient again tonight when he going to bed, his heart was felt to be racing,, that is why he came here. In the ER, he was in rapid AFib and he received IV Lopressor 5 mg 3 times, but he has not converted yet, still heart rate is in the low 100s. Denies any chest pain. Earlier was feeling some shortness of breath with nausea, but that resolved. Denies any headache, no dizziness, no blurred vision, no earache, no runny nose, no sore throat, no cough, no abdominal pain. Normal bowel and bladder movements. No blood in the stools or black stools, no hematuria, no swelling in the legs. Otherwise, he is ambulating and climbing steps okay. ALLERGIES: No known drug allergies. PAST MEDICAL HISTORY: As mentioned above. PAST SURGICAL HISTORY: Status post ASD repair MEDICATIONS: Currently on metoprolol tartrate 12.5 mg p.o. b.i.d. FAMILY HISTORY: Includes heart disease. SOCIAL HISTORY: Social drinker as per the Epic. He smokes half pack a day. REVIEW OF SYSTEMS: As per HPI. Rest of the review of systems is negative. PHYSICAL EXAMINATION: GENERAL: The patient is obese, not in acute distress. VITAL SIGNS: Temperature 36.4, pulse currently 105, respiratory rate 22, blood pressure 122/79, oxygen 96% on room air. HEENT: Pupils equal, round, and reactive to light. Oral mucosa moist. NECK: No JVD, no neck masses. CARDIOVASCULAR: S1 and S2 heard. Regular rate and rhythm. No murmur. RESPIRATORY SYSTEM: Normal AP diameter. No accessory muscle use. No wheezing, no crackles. ABDOMEN: Soft, bowel sounds present, nontender, no distention. CENTRAL NERVOUS SYSTEM: Cranial nerves II-XII grossly intact, nonfocal. EXTREMITIES: No edema, no erythema. LABORATORY DATA: WBC 7.2, hemoglobin 16.1, hematocrit 44.1, platelets 305. PT 10.6, INR 1, APTT 27. Sodium 141, potassium 3.6, chloride 102, bicarbonate 31, BUN 22, creatinine 1.3, serum glucose 116, calcium 9.6, magnesium 2, total bilirubin 0.6, AST 18, ALT 25, alkaline phosphatase 76. Troponin I high sensitivity 4.3. TSH 2.9. SARS-CoV-2 rapid test negative. IMAGING DATA: Chest x-ray, no acute findings seen. EKG: Rapid AFib with a rate of 158, incomplete right bundle-branch block, nonspecific ST abnormalities seen. ASSESSMENT AND PLAN: This is a 26-year-old male who presents with rapid atrial fibrillation. 1. Rapid atrial fibrillation . Currently will continue his home metoprolol 12.5 b.i.d. Continue with IV Lopressor p.r.n. Will start on low-dose IV heparin, n.p.o., and consult cardiology for further recommendation. Follow serial cardiac enzymes. Echo as per Cardiology. 2. Atrial septal defect: Status post repair. 3. Deep venous thrombosis prophylaxis: IV heparin. DISPOSITION: Closely monitor in tele floor. Expect to discharge home and follow with family doctor and cardiology. Job ID: [id number] [facility]
[2022-08-02 06:07] LABS: Basophils # (auto) 0.06 K/uL (0-0.2); Basophils % (auto) 0.8 %; Eosinophils # (auto) 0.65 K/uL (0-0.50); Eosinophils % (auto) 8.3 %; Hematocrit (blood only) 43.1 % (42.0-52.0); Hemoglobin 15.3 g/dl (14.0-18.0); Immature Granulocytes # (auto) 0.02 K/uL (0.01-0.20); Immature Granulocytes % (auto) 0.3 %; Lymphocytes # (auto) 2.52 K/uL (1.2-3.4); Lymphocytes % (auto) 32.3 %; Mean Corpuscular Hemoglobin 32.3 pg (25.0-34.0); Mean Corpuscular Hgb Conc 35.5 g/dL (32.0-36.0); Mean Corpuscular Volume 90.9 fL (80.0-100.0); Mean Platelet Volume 9.3 fL (9.4-12.4); Monocytes # (auto) 0.66 K/uL (0.11-0.59); Monocytes % (auto) 8.5 %; Neutrophils % (auto) 49.8 %; Platelet Count 297 K/uL (130-400); RDW Coefficient of Variation 11.9 % (11.5-14.5); RDW Standard Deviation 39.2 fL (36.4-46.3); Red Blood Count 4.74 M/uL (4.70-6.10); White Blood Count 7.81 K/ul (4.8-10.8)
[2022-08-02 06:13] LABS: BUN Creatinine Ratio 17.4 (10-20); Calcium 8.9 mg/dl (8.5-10.1); Creatinine Clr Calc Pharmacy 127.9 ml/min; Est GFR (African American) 101.9 ml/min; Magnesium 2.1 mg/dl (1.7-2.4); Potassium 4.3 mmol/L (3.5-5.1)
--- NOTE | 2022-08-02 08:07 | XRay Report ---
XR chest 1V portable CLINICAL HISTORY: Dysrhythmia TECHNIQUE: Single frontal radiograph of the chest was obtained. Comparison: Comparison is made to chest radiograph 03/18/2022 FINDINGS: Median sternotomy wires are unchanged. Cardiomegaly is noted. The lungs are clear. No evidence of ple ural effusion or pneumothorax. IMPRESSION: No acute chest disease. ACT 112: Negative or not required by law. Electronically signed by: Chuck Dale M.D. 08/02/2022 8:06 AM
--- NOTE | 2022-08-02 08:48 | Cardiology Consultation ---
Date of Consultation August 02, 2022 Assessment & Plan (1) Atrial fibrillation with RVR: (2) History of repair of congenital atrial septal defect (ASD): Plan This is now his second unprovoked episode of afib luckily, spontaneously converted to NSR d/c heparin start Eliquis 5mg po bid and discharge with metoprolol tartrate 12.5mg po bid to be continued as an outpatient my office will call to arrange outpatient 1 week zio monitor and EP referral for pulmonary vein isolation ok to d/c to home History of Present Illness Reason for Consultation: Afib with rvr Requesting Physician: NAVIN Attending Physician: Ranjit Estrella MD History of Present Illness PAST MEDICAL HISTORY: 1. Paroxysmal atrial fibrillation with a chads Vasc score of 0 2. History of ASD closure at age 14 Allergies Allergy/AdvReac Type Severity Reaction Status Date / Time No Known Allergies Allergy Verified 08/02/22 00:11 Home Medications Medication Instructions Recorded Confirmed Type metoprolol tartrate 25 mg tablet 12.5 mg PO BID 08/02/22 08/02/22 History Patient History Medical History Atrial fibrillation with RVR Surgical History History of repair of congenital atrial septal defect (ASD) Social History Smoking Status: Former smoker Tobacco Type: E-cigarettes / Vaping Hx Alcohol Use: Yes Hx Substance Use: No Preferred Language: Syriac Communication Ability: Effective Supercharger Mechanic Required: No Beliefs That Will Affect Care: None marital status: Single Current Living Situation: Significant Other Current Living Situation Comment: 2 story house Other Information That Helps Us Care for You: No Feels Safe at Home: Yes Safety Concerns: Feels Safe At This Time Assistive Devices: None Review of Systems Review of Systems: All systems reviewed & are unremarkable except as noted in HPI & below Physical Exam Physical Exam: Physical Exam: General: Awake, alert and oriented x 3. No acute distress. HEENT: Normocephalic, atraumatic. Pupils equal, round and reactive to light and accommodation. Extraocular muscles are intact. Anicteric sclera. Moist mucous membranes. Neck: No JVD. No bruit. Cardiovascular: Regular. No S-4. Normal S-1 and S-2. No S-3. No murmurs, rubs or gallops. Pulmonary: Clear to auscultation bilaterally. No rales, rhonchi, or wheezing. Abdomen: Bowel sounds x 4, soft. No rebound, guarding or tenderness. No organomegaly. Extremities: No clubbing, cyanosis or edema. +2 pedal pulses bilaterally. Skin: Warm and dry. Results & Data Vital Signs (Past 12 Hours) Vital Signs Temp Pulse Pulse Resp BP BP Pulse Ox 08/02/22 07:15 36.6 C 111 H 20 112/69 98 08/02/22 02:46 122 H 08/02/22 02:46 36.5 C 108 H 18 104/75 98 08/02/22 02:00 117 H 17 128/71 95 08/02/22 01:30 119 H 24 110/70 95 08/02/22 01:00 111 H 16 131/71 95 08/02/22 00:30 100 H 17 103/79 96 08/02/22 00:00 105 H 22 122/79 96 08/01/22 23:55 132 H 121/93 08/01/22 23:30 100 H 16 121/93 96 08/01/22 23:15 113 H 23 111/78 96 08/01/22 23:00 138 H 17 100/67 96 08/01/22 23:17 94 H 111/78 08/01/22 22:52 130 H 20 119/80 97 08/01/22 22:30 138 H 126/95 08/01/22 22:27 145 H 08/01/22 22:24 143 H 18 114/73 96 08/01/22 22:07 36.4 C L 164 H 20 153/86 H 98 O2 Del Method 08/02/22 07:15 Room Air 08/02/22 02:46 08/02/22 02:46 Room Air 08/02/22 02:00 08/02/22 01:30 08/02/22 01:00 08/02/22 00:30 08/02/22 00:00 08/01/22 23:55 08/01/22 23:30 08/01/22 23:15 08/01/22 23:00 08/01/22 23:17 08/01/22 22:52 08/01/22 22:30 08/01/22 22:27 08/01/22 22:24 Room Air 08/01/22 22:07 Room Air
[2022-08-02] MEDS ORDERED: METOPROLOL TARTRATE 25 MG TAB PO SCH (09:00)
[2022-08-02 10:25] LABS: Partial Thromboplastin Ratio 1.3; Partial Thromboplastin Time 34.5 Seconds (21.0-31.0)
[2022-08-02] MEDS ORDERED: APIXABAN 5 MG TABLET PO SCH (11:00)
--- NOTE | 2022-08-02 12:04 | Electrocardiogram Report ---
Test Reason : Blood Pressure : / mmHG Vent. Rate : 158 BPM Atrial Rate : 166 BPM P-R Int : 000 ms QRS Dur : 110 ms QT Int : 298 ms P-R-T Axes : 000 -14 044 degrees QTc Int : 483 ms Atrial fibrillation with rapid ventricular response Incomplete right bundle branch block Nonspecific ST abnormality Abnormal ECG When compared with ECG of 19-MAR-2022 07:11, Atrial fibrillation has replaced Sinus rhythm Vent. rate has increased BY [address] now depressed in Anterior leads Confirmed by Joshua Ocampo ([id number]) on 08/02/2022 12:04:03 PM Referred By: REFERRED SELF Confirmed By:Oscar Ocampo
--- NOTE | 2022-08-02 12:22 | Hospitalist Progress Note ---
Date of Service August 02, 2022 Assessment & Plan (1) Atrial fibrillation with RVR: Plan: Persistent atrial fibrillation ASSESSMENT AND PLAN: This is a 26-year-old male who presents with rapid atrial fibrillation. 1. Rapid atrial fibrillation . - converted to SR - continue his home metoprolol 12.5 b.i.d. Bread Dumper consulted Eliquis 5mg BID started - per Cardio: my office will call to arrange outpatient 1 week zio monitor and EP referral for pulmonary vein isolation 2. Atrial septal defect: Status post repair. plan of care discussed with patient in detail and at length all questions answered she is understanding, agreeable, comfortable with the plan of care Admission and Anticipated Discharge Date Admission Date: August 02, 2022 Subjective ff up for afib, etc seen resting in bed, comfortable states he feels fine overall no chest pain, dyspnea, palpitations, dizziness no other symptoms states he is ready for discharge Review of Systems Review of Systems: all noted and negative except for above Physical Exam Physical Exam: General- oriented x 3, not in distress, speaks in sentences with no effort or accessory muscle use Eyes- anicteric Neck- no JVD Lungs- clear BS bilaterally, no rales/wheezes Heart- normal rate, regular rhythm; no murmurs Abdomen- normal bowel sounds, nondistended, soft, no tenderness Extremities- no pretibial edema, no calf tenderness Neuro- alert, oriented x 3; no gross focal neurologic deficits Skin- warm & dry Results & Data Results & Data Vital Signs (Past 12 Hours) Vital Signs Temp Pulse Pulse Resp BP BP Pulse Ox 08/02/22 11:51 36.7 C 67 20 119/81 98 08/02/22 11:06 36.7 C 67 20 119/81 98 08/02/22 05:59 90 08/02/22 07:15 36.6 C 111 H 20 112/69 98 08/02/22 02:46 122 H 08/02/22 02:46 36.5 C 108 H 18 104/75 98 08/02/22 02:00 117 H 17 128/71 95 08/02/22 01:30 119 H 24 110/70 95 08/02/22 01:00 111 H 16 131/71 95 08/02/22 00:30 100 H 17 103/79 96 O2 Del Method 08/02/22 11:51 08/02/22 11:06 Room Air 08/02/22 05:59 08/02/22 07:15 Room Air 08/02/22 02:46 08/02/22 02:46 Room Air 08/02/22 02:00 08/02/22 01:30 08/02/22 01:00 08/02/22 00:30 all noted and reviewed including below
--- NOTE | 2022-08-02 14:18 | Electrocardiogram Report ---
Test Reason : Blood Pressure : / mmHG Vent. Rate : 057 BPM Atrial Rate : 057 BPM P-R Int : 198 ms QRS Dur : 110 ms QT Int : 386 ms P-R-T Axes : 034 -14 029 degrees QTc Int : 375 ms Sinus bradycardia Possible Left atrial enlargement Incomplete right bundle branch block Abnormal ECG When compared with ECG of 02-AUG-2022 06:36, (unconfirmed) Sinus rhythm has replaced Atrial fibrillation Vent. rate has decreased BY 62 BPM Confirmed by Joshua Ocampo ([id number]) on 08/02/2022 2:18:08 PM Referred By: REFERRED SELF Confirmed By:Oscar Ocampo
--- NOTE | 2022-08-02 14:21 | Electrocardiogram Report ---
Test Reason : Blood Pressure : / mmHG Vent. Rate : 119 BPM Atrial Rate : 166 BPM P-R Int : 000 ms QRS Dur : 102 ms QT Int : 256 ms P-R-T Axes : 000 015 031 degrees QTc Int : 360 ms Atrial fibrillation with rapid ventricular response Incomplete right bundle branch block Nonspecific T wave abnormality Abnormal ECG When compared with ECG of 01-AUG-2022 22:16, No significant change was found Confirmed by Joshua Ocampo ([id number] on 08/02/2022 2:21:02 PM Referred By: REFERRED SELF Confirmed By:Oscar Ocampo
--- NOTE | 2022-08-06 13:38 | Discharge Summary ---
Discharge Summary Date of Service August 06, 2022 Notes For Next Care Provider Medication Changes From Visit Eliquis 5 mg p.o. twice a day Admission HPI Per Admitting Provider HISTORY OF PRESENT ILLNESS: This is a 26-year-old male with past medical history significant for atrial septal defect, status post repair, tricuspid valve abnormality, history of borderline hypertension. The patient has history of atrial fibrillation, presents with rapid atrial fibrillation. The patient had new-onset atrial fibrillation in March of 2022. At that time, echo was done, which showed borderline global hypokinesis with EF of 50% to 55%. No segmental wall motion abnormalities, questionable tricuspid annuloplasty ring without significant stenosis or regurgitation. He was discharged at that time on metoprolol succinate 25 mg p.o. daily and Eliquis 5 mg p.o. b.i.d. He followed with cardiology on first week of April and as metoprolol succinate was making him very tired and run down, it was switched to tartrate 12.5 mg p.o. b.i.d. and Eliquis was stopped because of his CHADS-VASc score of 0. The patient again tonight when he going to bed, his heart was felt to be racing,, t hat is why he came here. In the ER, he was in rapid AFib and he received IV Lopressor 5 mg 3 times, but he has not converted yet, still heart rate is in the low 100s. Denies any chest pain. Earlier was feeling some shortness of breath with nausea, but that resolved. Denies any headache, no dizziness, no blurred vision, no earache, no runny nose, no sore throat, no cough, no abdominal pain. Normal bowel and bladder movements. No blood in the stools or black stools, no hematuria, no swelling in the legs. Otherwise, he is ambulating and climbing steps okay. Admission Exam Per Admitting Provider GENERAL: The patient is obese, not in acute distress. VITAL SIGNS: Temperature 36.4, pulse currently 105, respiratory rate 22, blood pressure 122/79, oxygen 96% on room air. HEENT: Pupils equal, round, and reactive to light. Oral mucosa moist. NECK: No JVD, no neck masses. CARDIOVASCULAR: S1 and S2 heard. Regular rate and rhythm. No murmur. RESPIRATORY SYSTEM: Normal AP diameter. No accessory muscle use. No wheezing, no crackles. ABDOMEN: Soft, bowel sounds present, nontender, no distention. CENTRAL NERVOUS SYSTEM: Cranial nerves II-XII grossly intact, nonfocal. EXTREMITIES: No edema, no erythema. Principal Dx & Hospital Course #1 = Principal Diagnosis (1) Atrial fibrillation with RVR: Persistent atrial fibrillation ASSESSMENT AND PLAN: This is a 26-year-old male who presents with rapid atrial fibrillation. 1. Rapid atrial fibrillation . - converted to SR - continue his home metoprolol 12.5 b.i.d. Sliver Former consulted Eliquis 5mg BID started - per Cardio: my office will call to arrange outpatient 1 week zio monitor and EP referral for pulmonary vein isolation 2. Atrial septal defect: Status post repair. plan of care discussed with patient in detail and at length all questions answered she is understanding, agreeable, comfortable with the plan of care Discharge Exam General- oriented x 3, not in distress, speaks in sentences with no effort or accessory muscle use Eyes- anicteric Neck- no JVD Lungs- clear BS bilaterally, no rales/wheezes Heart- normal rate, regular rhythm; no murmurs Abdomen- normal bowel sounds, nondistended, soft, no tenderness Extremities- no pretibial edema, no calf tenderness Neuro- alert, oriented x 3; no gross focal neurologic deficits Skin- warm & dry Updated Medication List Medication Instructions Recorded Confirmed Type apixaban 5 mg tablet (Eliquis) 5 mg PO BID 30 days #60 tabs 08/02/22 Rx metoprolol tartrate 25 mg tablet 12.5 mg PO BID 08/02/22 08/02/22 History Hospital Stay Data Consultations 08/02/22 00:26 ED Decision to Admit Stat 08/02/22 08:00 Consult Cardiology Routine Pending Results Patient Have Any Pending Studies at Discharge: No Discharge Instructions Given to Patient (Per Discharging Provider) PLEASE REFER TO YOUR NEW MEDICATION LIST AND FOLLOW INSTRUCTIONS CAREFULLY. YOUR NEW MEDICATION INCLUDE: Eliquis-blood thinner If you sustain any head injury, even if you do not have symptoms, please proceed to the ER immediately for evaluation including a CAT scan of your head. PLEASE CALL YOUR PRIMARY CARE PHYSICIAN OR RETURN TO THE ER IF WITH WORSENING OF SYMPTOMS, INCLUDING Chest pain, palpitations, dizziness, shortness of breath, etc. FOLLOW UP WITH PRIMARY CARE PHYSICIAN in 1 week. The cardiology clinic will be calling you soon for a follow up appointment, Zio patch monitor placement, and referral to school psychological examiner. Total Time Total Time Spent Total Time Spent (In Minutes): >30 minutes
== END 2022-08-02 12:48 | disposition home or self-care (01) | DRG 310 ==
LOC: ED 22:06 → INTOOBSV 08-02 01:48 → 2S 08-02 01:48 → SUATTDRO 08-02 01:48 → 2S 08-02 02:14

== ENCOUNTER 2024-02-10 05:00 | Observation (INO) ==
--- OUTSIDE RECORDS SUMMARY | 2024-02-10 05:05 | External Medical Summary | Summary of Care ---
Author Name Unknown Organization [facility] Address [address] [place] [address] Phone [phone] Care Team Providers Care Piece Jobber Name Role Phone Helen Kennedy MD Primary Care Provid er Reason for Visit * Reason Comments Dizziness Encounter Details Date Type Department Care Team (Latest Contact Info) Description 09/07/2023 4:15 PM EDT Convenient Care Visit [facility] [address] [place] [address] Padmini Nunez PA-C [address] [place] [address] Benign paroxysmal positional vertigo of left ear* Allergies No known active allergiesdocumented as of this encounter (statuses as of 09/07/2023) Medications Medication Sig Dispensed Refills Start Date End Date Status Metoprolol Tartrate 25 MG Oral Tablet (Lopressor)Indication s:Atrial fibrillation, unspecified type (HCC) TAKE 1/2 TABLETS (12.5 MG) BY MOUTH IN THE MORNING AND 1/2 TABLETS (12.5 MG) BEFORE BEDTIME. 90 Tablet 3 10/03/2022 Active Eliquis 5 MG Oral Tablet (Apixaban)Indications :Atrial fibrillation with RVR (HCC) TAKE 1 TABLET BY MOUTH IN THE MORNING AND 1 TABLET BEFORE BEDTIME. MUST HAVE LAB WORK FOR REFILLS. 180 Tablet 3 02/05/2023 Active Meclizine HCl 12.5 MG Oral Tablet (Antivert)Indications :Benign paroxysmal positional vertigo of left ear Take 1 Tablet by mouth 3 times a day as needed for Dizziness. 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 Bicuspid aortic valve 12/06/2022 Atrial fibrillation with RVR 03/27/2022 H/O atrial septal defect repair 03/27/2022 documented as of this encounter (statuses as of 09/07/2023) Social History Tobacco Use Types Packs/Day Years Used Date Smoking Tobacco: Former Cigarettes Q uit: 03/17/2022 Vaporizer Quit: 03/17/20 Smokeless Tobacco: Never Tobacco Cessation:Counseling Given: Not Answered Alcohol Use Standard Drinks/Week Comments Yes 0 (1 standard drink = 0.6 oz pure alcohol) occasional social drinker - h/o episodic binge drinking before mar 2022 Sex and Gender Information Value Date Recorded Sex Assigned at Not on file Gender Identity Not on file Sexual Orientation Not on file Job Start Date Occupation Industry Not on file Not on file Not on file documented as of this encounter Last Filed Vital Signs Vital Sign Reading Time Taken Comments Blood Pressure 140/82 09/07/2023 4:18 PM EDT Pulse 88 09/07/2023 4:18 PM EDT Temperature 36.9 C (98.5 F) 09/07/2023 4:18 PM ED T Respiratory Rate 18 09/07/2023 4:18 PM EDT Oxygen Saturation 99% 09/07/2023 4:18 PM EDT Inhaled Oxygen Concentration - - Weight 106.6 kg (235 lb) 09/07/2023 4:18 PM EDT Height 182.9 cm (6') 09/07/2023 4:18 PM EDT Body Mass Index 31.87 09/07/2023 4:18 PM EDT documented in this encounter Progress Notes * Padmini Nunez PA-C - 09/07/2023 4:57 PM EDT Subjective: Nursing Notes: Arabella Esquivel LPN 09/07/23 1620 Signed Patient present to the clinic for evaluation. Patient reports dizziness and nausea that started last night. Feels like the room is spinning. Sx are room spinning dizziness since last night, with some nausea On metoprolol but has been monitoring pulse within normal limits, improved today Feels now sort of a dizziness in head Was rocking in chair about 3:30 this morning when happened no sick contacts at home. Sig med hx/risk factors: hx a-fib, bicuspid valve Review of Systems Constitutional: Negative for activity change, appetite change, fatigue and fever. HENT: Positive for ear pain (slight ache in the left ear). Negative for congestion, postnasal drip,rhinorrhea, sinus pressure, sinus pain, sore throat and voice change. Eyes: Negative for discharge and redness. Respiratory: Negative for cough, chest tightness, shortness of breath and wheezing. Cardiovascular: Negative for chest pain, palpitations and leg swelling. Gastrointestinal: Negative for abdominal pain, diarrhea, nausea and vomiting. Musculoskeletal: Negative for arthralgias, neck pain and neck stiffness. Allergic/Immunologic: Negative for environmental allergies. Neurological: Positive for dizziness (room spinning) and headaches (a little). Negative for seizures, syncope, speech difficulty, weakness, light-headedness and numbness. Hematological: Negative for adenopathy. 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 90 Tablet 3 Eliquis 5 MG Oral Tablet (Apixaban) TAKE 1 TABLET BY MOUTH IN THE MORNING AND 1 TABLET BEFORE BEDTIME. MUST HAVE LAB WORK FOR REFILLS. 180 Tablet 3 Meclizine HCl 12.5 MG Oral Tablet (Antivert) Take 1 Tablet by mouth 3 times a day as needed for Dizziness. 20 Tablet 1 No current facility-administered medications for this visit. Past Medical History: Diagnosis Date Tricuspid valvular regurgitation Past Surgical History: Procedure Laterality Date REPAIR HEART SEPTUM DEFECTS 2009 atrial septal defect repair Review of patient's allergies indicates: No Known Allergies Objective: BP 140/82 (BP Site: Left Arm, BP Position: Sitting, BP Cuff Size: Large) | Pulse 88 | Temp 36.9 C(98.5 F) (Tympanic) | Resp 18 | Ht 1.829 m (6') | Wt 106.6 kg (235 lb) | SpO2 99% | BMI 31.87 kg/m | BSA 2.33 m Physical Exam Constitutional: Appearance: Normal appearance. He is normal weight. HENT: Head: Normocephalic. Right Ear: Tympanic membrane, ear canal and external ear normal. Left Ear: Ear canal and external ear normal. Ears: Morris exam findings: Lateralizes right. Comments: Left TM dull Nose: No congestion or rhinorrhea. Mouth/Throat: Pharynx: Posterior oropharyngeal erythema present. No oropharyngeal exudate. Eyes: Extraocular Movements: Extraocular movements intact. Conjunctiva/sclera: Conjunctivae normal. Pupils: Pupils are equal, round, and reactive to light. Cardiovascular: Rate and Rhythm: Normal rate and regular rhythm. Heart sounds: Normal heart sounds. Pulmonary: Effort: Pulmonary effort is normal. Breath sounds: Normal breath sounds. No wheezing or rhonchi. Musculoskeletal: Cervical back: Normal range of motion. No rigidity. No muscular tenderness. Lymphadenopathy: Cervical: No cervical adenopathy. Skin: Findings: No rash. Neurological: Mental Status: He is alert and oriented to person, place, and time. GCS: GCS eye subscore is 4. GCS verbal subscore is 5. GCS motor subscore is 6. Psychiatric: Mood and Affect: Mood normal. Thought Content: Thought content normal. Judgment: Judgment normal. ASSESSMENT/PLAN: Benign paroxysmal positional vertigo of left ear (Primary) - Meclizine HCl 12.5 MG Oral Tablet (Antivert); Take 1 Tablet by mouth 3 times a day as needed for Dizziness. Discussed home care [facility] h/o provided on BPPV Over 30 minutes spent with patient exam, counseling, review of previous medical records and with documenting. Return instruction reviewed with pt in detail. Reasons to report to the ED were also reviewed. Voiced understanding Advised to follow up if no improvement in 3-5days. Padmini Nunez PA-C documented in this encounter Nursing Notes * Arabella Esquivel LPN - 09/07/2023 4:19 PM EDT Patient present to the clinic for evaluation. Patient reports dizziness and nausea that started last night. Feels like the room is spinning. documented in this encounter Miscellaneous Notes * Pt Handout (on AVS) - Padmini Nunez PA-C - 09/07/2023 5:08 PM EDT Images from the original note were not included. [id number] Benign Paroxysmal Positional Vertigo Benign paroxysmal positional vertigo (BPPV) is a common condition. You feel as if the room is spinning after changing position, moving your head quickly, or even just rolling over in bed. Vertigo is a false feeling of motion plus disorientation that makes it seem as if the room is spinning. A vertigo attack may cause sudden nausea, vomiting, and heavy sweating. Severe vertigo causes aloss of balance. You may even fall down. Vertigo is caused by a problem with the inner ear. The inner ear is located behind the middle ear. It is a part of the balance center of the body. It contains small calcium particles within fluid-filled canals (semicircular canals). These particles can move out of position. This may happen as a result of aging, head injury, or disease of the inner ear. Once that happens, moving your head in certain ways may cause the particles to stimulate the inner ear. This creates the feeling of vertigo. An episode of vertigo may last seconds, minutes, or hours. Once you are over the first episode of vertigo, it may never return. Sometimes symptoms return off and on for several weeks or longer. BPPV is treatable. The Junior maneuver is a simple treatment for the common cause of vertigo. Your provider may try to put the calcium particles back in their correct position by having you do a series of head movements. Your provider may have you do other types of maneuvers, depending on which canals the crystals are in. Home care Follow these guidelines when caring for yourself at home: Rest quietly in bed if your symptoms are severe. Change position slowly. There is usually 1 position that will feel best. This might be lying on one side or lying on your back with your head slightly raised on pillows. Until you have no symptoms, you are at a higher risk of falling. Let someone help you when you get up. Get rid of home hazards such as loose electrical cords and throw rugs. Don?t walk in unfamiliar areas that aren't lighted. Use night-lights in bathrooms and kitchen areas. Don't drive or work with dangerous machinery for 1 week after symptoms go away. This is in case symptoms return suddenly. Take medicine as prescribed to relieve your symptoms. Unless another medicine was prescribed fornausea, vomiting, and vertigo, you may use nfvz-wye-qgwvmso motion sickness medicine. Examples of this include meclizine and dimenhydrinate. Don't take ahfb-vwa-hjjgsra medicine for this condition without talking with your healthcare provider, especially the first time. Follow-up care Follow up with your healthcare provider or an ear, nose, and throat specialist (ENT or fish cutting machine operator), or as directed. Tell your provider about any ringing in your ear or hearing loss. If you had a CT or MRI scan, a specialist will review it. You'll be told of any new findings that may affect your care. When to get medical advice Call your healthcare provider right away if any of these occur: Vertigo gets worse even after taking prescribed medicine Repeated vomiting even after taking prescribed medicine Weakness that gets worse Trouble hearing Fever of 100.4F (38C) or higher, or as directed by your healthcare provider Call 911 Call 911 right away if any of these occur: Fainting Severe headache or abnormal drowsiness or confusion Weakness of an arm or leg or one side of the face Trouble with speech or vision Trouble walking Seizure Fast heart rate Chest pain Last Reviewed Date: 04/13/202219997743-8527 [employer]. All rights reserved. This information is not intended as a substitute for professional medical care. Always follow your healthcare professional's instructions. documented in this encounter Plan of Treatment Upcoming Encounters Date Type Department Care Team (Late st Contact Info) Description 09/11/2023 8:30 AM EDT Office Visit Cardiology, [address] [place] [address] Deana Macias CRNP [address] [place] [address], [place] [address] Health Maintenance Due Date Last Done Comments Depression Screening 2008 GARDASIL-HPV IMMUNIZATION SERIES (1 - Male 3-dose series) 09/13/2011 HIV Screening 09/13/2011 Hepatitis C Screening 2014 Hepatitis B (1 of 3 - 19+ 3-dose series) 09/13/2015 DTaP,Tdap,and Td Vaccines (2 - Td or Tdap) 03/14/2021 03/14/2011 COVID-19 Vaccine (3 - 2022-2 4 season) 2023 02/14/2021, 01/06/2021 Influenza Vaccine (FLU shot) (Season Ended) 2024 03/14/2011 MENINGOCOCCAL (MENACTRA/MENVEO) Aged Out 03/14/2011 No longer eligible b ased on patient's age to complete this topic Pneumococcal Vaccine: Pediatrics (0 to 5 Years) and At-Risk Patients (6 to 64 Years) Aged Out No longer eligible b ased on patient's age to complete this topic documented as of this encounter Medical Devices Not on filedocumented as of this encounter Visit Diagnoses Diagnosis Benign paroxysmal positional vertigo of left ear- Primary documented in this encounter Care Teams Piece Jobber Relationship Specialty Start Date End Date Helen Kennedy MD [address] [facility] [place] [address] PCP - General Family Medicine 03/23/22 documented as of this encounter"
--- OUTSIDE RECORDS SUMMARY | 2024-02-10 05:05 | External Medical Summary | Summary of Care ---
Author Name Unknown Organization [facility] Address [address] [place] [address] Phone [phone] Care Team Providers Care Skidway Worker Name Role Phone Livan Gifford MD Primary Care Provid er Reason for Visit * Reason Comments eRx-Medication Refill Encounter Details Date Type Department Care Team (Late st Contact Info) Description 09/26/2023 Refill [facility] [address] [place] [address] Livan Gifford MD [address] [place] [address] Atrial fibrillation, unspecified type (HCC) Allergies No known active allergiesdocumented as of this encounter (statuses as of 10/09/2023) Medications Medication Sig Dispensed Refills Start Date End Date Status Eliquis 5 MG Oral Tablet (Apixaban)Indicati ons:Atrial fibrillation with RVR (HCC) TAKE 1 TABLET BY MOUTH IN THE MORNING AND 1 TABLET BEFORE BEDTIME. MUST HAVE LAB WORK FOR REFILLS. 180 Tablet 3 02/05/2023 Active Meclizine HCl 12.5 MG Oral Tablet (Antivert)Indicati ons:Benign paroxysmal positional vertigo of left ear Take 1 Tablet by mouth 3 times a day as needed for Dizziness. 20 Tablet 1 09/07/2023 Active Metoprolol Tartrate 25 MG Oral Tablet (Lopressor)Indicat ions:Atrial fibrillation, unspecified type (HCC) TAKE 1/2 TABLETS (12.5 MG) BY MOUTH IN THE MORNING AND 1/2 TABLETS (12.5 MG) BEFORE BEDTIME. 90 Tablet 09/27/2023 Active Metoprolol Tartrate 25 MG Oral Tablet (Lopressor)Indicat ions:Atrial fibrillation, unspecified type (HCC) TAKE 1/2 TABLETS (12.5 MG) BY MOUTH IN THE MORNING AND 1/2 TABLETS (12.5 MG) BEFORE BEDTIME. 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 Patient was notified. Successfully contacted patient and provided [facility] message. * Telephone Encounter - Dagmar Giraldo [facility] - 09/27/2023 7:22 AM EDTSigned Prescriptions: Disp Refills Metoprolol Tartrate 25 MG Oral Tablet (Lop*90 Tab*0 Sig: TAKE 1/2 TABLETS (12.5 MG) BY MOUTH IN THE MORNING AND 1/2 TABLETS (12.5 MG) BEFORE BEDTIME. Authorizing Provider: LIVAN GIFFORD Ordering User: DAGMAR GIRALDO * Telephone Encounter - Dagmar Giraldo RPh - 09/27/2023 7:22 AM EDT Please contact patient so that an appointment can be scheduled with his PRIMARY CARE provider. Refill authorized to hold patient over in the mean time. Last Visit: 08/08/2022 (in office), Visit date not found (telemedicine) Next Visit: Visit date not found Dagmar Hinkle Clinical Pharmacist [facility] [phone] 09/27/2023, 7:22 AM documented in this encounter Plan of Treatment Health Maintenance Due Date Last Done Comments Depression Screening 2008 HIV Screening 09/13/2011 Hepatitis C Screening 2014 Hepatitis B (1 of 3 - 19+ 3-dose series) 09/13/2015 DTaP,Tdap,and Td Vaccines (2 - Td or Tdap) 03/14/2021 03/14/2011 COVID-19 Vaccine (3 - 2022-2 4 season) 2023 02/14/2021, 01/06/2021 Influenza Vaccine (FLU shot) (Season Ended) 2024 03/14/2011 MENINGOCOCCAL (MENACTRA/MENVEO) Aged Out 03/14/2011 No longer eligible b ased on patient's age to complete this topic GARDASIL-HPV IMMUNIZATION SERIES Aged Out No longer eligible b ased on patient's age to complete this topic Pneumococcal Vaccine: Pediatrics (0 to 5 Years) and At-Risk Patients (6 to 64 Years) Aged Out No longer eligible b ased on patient's age to complete this topic documented as of this encounter Medical Devices Not on filedocumented as of this encounter Visit Diagnoses Diagnosis Atrial fibrillation, unspecified type (HCC) documented in this encounter Care Teams Skidway Worker Relationship Specialty Start Date End Date Livan Gifford MD [address] [place] [address] PCP - General Family Medicine 03/23/22 documented as of this encounter
--- OUTSIDE RECORDS SUMMARY | 2024-02-10 05:05 | External Medical Summary | Summary of Care ---
Author Name Unknown Organization [facility] Address [address] [place] [address] Phone [phone] Care Team Providers Care Manager Business Systems Name Role Phone Livan Gifford MD Primary Care Provid er Reason for Visit * Reason Onset Date Comments eRx-Medication Refill Status Check 01/18/2024 Encounter Details Date Type Department Care Team (Late st Contact Info) Description 01/15/2024 Refill [facility] [address] [place] [address] Livan Gifford MD [address] [place] [address] Atrial fibrillation, unspecified type (HCC) Allergies No known active allergiesdocumented as of this encounter (statuses as of 01/18/2024) Medications Medication Sig Dispensed Refills Start Date [...] AND 1/2 TABLETS (12.5 MG) BEFORE BEDTIME. 45 Tablet 01/18/2024 Active Metoprolol Tartrate 25 MG Oral Tablet (Lopressor)Indicat ions:Atrial fibrillation, unspecified type (HCC) TAKE 1/2 TABLETS (12.5 MG) BY MOUTH IN THE MORNING AND 1/2 TABLETS (12.5 MG) BEFORE BEDTIME. 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 (Adult - for ages 18 years and over) Not on file 10/30/2023 Is your family able to pay t he heat, water, or electric bill? (Household - for ages 0-17 years) Not on file 10/30/2023 Does your family have access to good internet? (Household - for ages 0-17 years) Not on file 10/30/2023 Social Connections Answer Date Recorded How often do you feel lonely or isolated from those around you? (Adult - for ages 18 years and over) Not on file 10/30/2023 Sex and Gender Information Value Date Recorded Sex Assigned at Not on file Gender Identity Not on file Sexual Orientation Not on file Job Start Date Occupation Industry Not on file Not on file Not on file documented as of this encounter Miscellaneous Notes * Telephone Encounter - Bc Alvarez [facility] - 01/18/2024 11:30 AM EDTSigned Prescriptions: Disp Refills Metoprolol Tartrate 25 MG Oral Tablet (Lop*45 Tab*0 Sig: TAKE 1/2 TABLETS (12.5 MG) BY MOUTH IN THE MORNING AND 1/2 TABLETS (12.5 MG) BEFORE BEDTIME.Authorizing Provider: LIVAN GIFFORD User: BC ALVAREZ * Telephone Encounter - Bc Alvarez [facility] - 01/18/2024 11:29 AM EDT Patient has lab orders pending, with office visit scheduled for 02/26/2024. Authorizing refill(s) of med(s) until then. Thank you, Bc Alvarez [facility] Clinical Pharmacist [facility]) 01/18/24 11:29 AM [phone] * Telephone Encounter - Hai Fritz temper mill roller - 01/18/2024 11:14 AM EDT Patient calling to check on status of Metoprolol refill. Caller is scheduled with Primary Care and Cardiology, as requested. Pt has been out of this medication for four days. Thank you, Hai Fritz Drug And Alcohol Counsellor I [facility]) 01/18/2024,11:14 AM * Telephone Encounter - Interface, [facility] - 01/18/2024 11:06 AM EDT Pending Prescriptions: Disp Refills Metoprolol Tartrate 25 MG Oral Tablet [Pha*90 Tab*0 Sig: TAKE 1/2 TABLETS (12.5 MG) BY MOUTH IN THE MORNING AND 1/2 TABLETS (12.5 MG) BEFORE BEDTIME. * Telephone Encounter - Irene Iverson temper mill roller - 01/17/2024 12:16 PM EDT Pending Prescriptions: Disp Refills Metoprolol Tartrate 25 MG Oral Tablet [Pha*90 Tab*0 Sig: TAKE 1/2 TABLETS (12.5 MG) BY MOUTH IN THE MORNING AND 1/2 TABLETS (12.5 MG) BEFORE BEDTIME. * Telephone Encounter - Irene Iverson temper mill roller - 01/17/2024 12:12 PM EDT Received message from [facility] regarding patient needing an appointment. Call Placed, Pt was agreeable to set up office visit. Patient scheduled for 02/26/2024. Thank you for your assistance Irene Iverson Chemical Strength Tester II [facility] 01/17/2024,12:12 PM * Telephone Encounter - Nancy Cole, [facility] - 01/17/2024 11:58 AM EDT Pending Prescriptions: Disp Refills Metoprolol Tartrate 25 MG Oral Tablet [Pha*90 Tab*0 Sig: TAKE 1/2 TABLETS (12.5 MG) BY MOUTH IN THE MORNING AND 1/2 TABLETS (12.5 MG) BEFORE BEDTIME. * Telephone Encounter - Nancy Cole RPh - 01/17/2024 11:58 AM EDT 2nd attempt Please contact patient so that an appointment can be scheduled with his PRIMARY CARE provider before this refill can be authorized. After contacting patient, please forward request to Livan Gifford MD. Last Visit: 08/08/2022 (in office), Visit date not found (telemedicine) Next Visit: Visit date not found Pending Prescriptions: Disp Refills Metoprolol Tartrate 25 MG Oral Tablet [Pha*90 Tab*0 Sig: TAKE 1/2 TABLETS (12.5 MG) BY MOUTH IN THE MORNING AND 1/2 TABLETS (12.5 MG) BEFORE BEDTIME. If no future appointments scheduled, and last appointment is greater than a year ago, please schedule patient for a follow-up appointment Last date the medication was ordered: Is this request for a controlled substance?No Patient Phone Numbers Labs: Lab Results Component Value Date/Time CREAT 1.1 11/13/2022 01:15 PM POTASSIUM 4.4 11/13/2022 01:15 PM Nancy Hinkle, PharmD Clinical Pharmacist [facility] ([facility]) (formerly Telepharmacy) [phone] 01/17/2024,11:58 AM documented in this encounter Plan of Treatment Upcoming Encounters Date Type Department Care Team (Late st Contact Info) Description 02/26/2024 3:40 PM EDT Office Visit [place] [id number] [facility] [place] [address] Livan Gifford MD [address] [address] 03/25/2024 3:30 PM EST Office Visit Cardiology, [facility] [address] [place] [address] Deana Macias, [place] [address] [place] [address] Health Maintenance Due Date Last Done Comments Depression Screening 2008 HIV Screening 09/13/2011 Hepatitis C Screening 2014 Hepatitis B Vaccine (1 of 3 - 19+ 3-dose series) 09/13/2015 DTap/Tdap Vaccines (2 - Td o r Tdap) 03/14/2021 03/14/2011 COVID-19 Vaccine (3 - 2022-2 4 season) 2024 02/14/2021, 01/06/2021 Influenza Vaccine (FLU shot) (#1) 2024 03/14/2011 MENINGOCOCCAL (MENACTRA/MENVEO) Aged Out 03/14/2011 No longer eligible b ased on patient's age to complete this topic HPV (Gardasil) Vaccine Aged Out No lo nger eligible based on patient's age to complete this topic Pneumococcal Vaccine: Pediatrics (0 to 5 Years) and At-Risk Patients (6 to 64 Years) Aged Out No longer eligible b ased on patient's age to complete this topic documented as of this encounter Medical Devices Not on filedocumented as of this encounter Visit Diagnoses Diagnosis Atrial fibrillation, unspecified type (HCC) documented in this encounter Care Teams Manager Business Systems Relationship Specialty Start Date End Date Livan Gifford MD [address] [address] PCP - General Family Medicine 03/23/22 documented as of this encounter
[2024-02-10] MEDS: dilTIAZem HCl 5 MG/ML 5 ML VIAL IV STA ×2 (05:16→05:50)
[2024-02-10] MEDS: SODIUM CHLORIDE 0.9% 1,000 ML IV STA (05:16)
[2024-02-10] MEDS: dilTIAZem HCl 5 MG/ML 5 ML VIAL IV ONE (05:19)
[2024-02-10 05:45] LABS: Basophils # (auto) 0.09 K/uL (0.00-0.20); Basophils % (auto) 0.8 %; Hematocrit (blood only) 46.4 % (42.0-52.0); Immature Granulocytes # (auto) 0.03 K/uL (0.01-0.20); Immature Granulocytes % (auto) 0.3 %; Lymphocytes # (auto) 1.94 K/uL (1.20-3.40); Lymphocytes % (auto) 17.8 %; Mean Corpuscular Hemoglobin 31.6 pg (25.0-34.0); Mean Corpuscular Hgb Conc 34.5 g/dL (32.0-36.0); Mean Corpuscular Volume 91.5 fL (80.0-100.0); Mean Platelet Volume 9.1 fL (9.4-12.4); Monocytes # (auto) 0.82 K/uL (0.11-0.59); Monocytes % (auto) 7.5 %; Neutrophils # (auto) 6.83 K/uL (1.40-6.50); Neutrophils % (auto) 62.6 %; Platelet Count 303 K/uL (130-400); RDW Coefficient of Variation 12.6 % (11.5-14.5); RDW Standard Deviation 42.2 fL (36.4-46.3); Red Blood Count 5.07 M/uL (4.70-6.10); White Blood Count 10.91 K/ul (4.8-10.8)
[2024-02-10 05:48] LABS: Albumin Globulin Ratio 1.8 (0.9-2); Albumin Level 4.6 gm/dl (3.4-5.0); BUN Creatinine Ratio 13.3 (10-20); Bilirubin,Total 0.6 mg/dl (0.2-1.0); Calcium 9.7 mg/dl (8.6-10.3); Creatinine Clr Calc Pharmacy 134.8 ml/min; Est GFR (African American) 112.2 ml/min; Est GFR (Non-African American) 96.8 ml/min; Globulin 2.5 gm/dl (2.5-4.0); Potassium 3.9 mmol/L (3.5-5.1); Total Protein 7.1 gm/dl (6.0-8.3)
--- NOTE | 2024-02-10 05:53 | Emergency Department Note ---
History of Present Illness General Chief complaint: Cardiac Assessment Stated complaint: IRREGULAR AND RAPID HEART RATE Time Seen by Provider: 02/10/24 05:09 History of Present Illness This 28-year-old with a history of A-fib on Eliquis and metoprolol presents ER for feeling like he is in A-fib. Patient states he had some alcoholic beverages the past few days. Patient denies chest pain, dyspnea, fevers, cough, congestion, flulike illness. No other concerns per patient. He did take an extra metoprolol. Home Medications Medication Instructions Recorded Confirmed Type apixaban 5 mg tablet (Eliquis) 5 mg PO BID 30 days #60 tabs 08/02/22 11/16/22 Rx metoprolol tartrate 25 mg tablet 12.5 mg PO BID 08/02/22 11/16/22 History Allergies Allergy/AdvReac Type Severity Reaction Status Date / Time No Known Allergies Allergy Verified 11/10/22 08:33 Past Med/Surg History Problem List Paroxysmal atrial fibrillation Encounter for pre-operative examination Palpitations (Acute) Atrial fibrillation with RVR (Acute) Eliquis/metoprolol Following with [facility] Cardiology History of repair of congenital atrial septal defect (ASD) (Acute) 2009/[facility] Medical History Atrial fibrillation with RVR Eliquis/metoprolol Following with [facility] Cardiology History of congenital anomaly of heart ASD repair (2009) Surgical History History of repair of congenital atrial septal defect (ASD) 2009/[facility] History of wisdom tooth extraction Family History Other No family history of adverse response to anesthesia Social History Smoking Status: Never smoker Tobacco Type: E-cigarettes / Vaping Second Hand Exposure: No; Do You Dip or Chew Tobacco: No; Hx Alcohol Use: Yes Hx Substance Use: No Preferred Language: Montenegrin Communication Ability: Effective Copywriting Intern Required: No Beliefs That Will Affect Care: None marital status: Single Current Living Situation: Significant Other Current Living Situation Comment: 2 story house Feels Safe at Home: Yes Assistive Devices: None Review of Systems A total of 10 systems reviewed and were otherwise negative Physical Exam Vital Signs Vital Signs - 24 hr 02/10/24 05:04 02/10/24 05:21 02/10/24 05:22 Temperature 36.6 C Temperature Source Temporal Artery Scan Pulse Rate 128 H 98 H Pulse Rate [Apical] 99 H Respiratory Rate 20 20 Respiratory Effort / Characteristics Non-Labored Spontaneous Respiratory Depth Normal Blood Pressure 128/84 Blood Pressure [Right Arm] 120/84 Blood Pressure Mean 98 Blood Pressure Mean [Right Arm] 96 Pulse Oximetry 98 94 Oxygen Delivery Method Room Air Room Air Sepsis Recent Fever Within 48 Hours No Sepsis New/Unexplained Change in Mental Status No Sepsis Action Taken by Nursing No Action Required 02/10/24 05:40 02/10/24 05:46 Temperature Temperature Source Pulse Rate Pulse Rate [Apical] 135 H Respiratory Rate 18 Respiratory Effort / Characteristics Respiratory Depth Blood Pressure Blood Pressure [Right Arm] 148/104 H Blood Pressure Mean Blood Pressure Mean [Right Arm] 118 Pulse Oximetry 97 97 Oxygen Delivery Method Room Air Room Air Sepsis Recent Fever Within 48 Hours Sepsis New/Unexplained Change in Mental Status Sepsis Action Taken by Nursing VITALS: Vitals are noted on the nurse's note and reviewed by myself. Vital signs tachycardic GENERAL: Pleasant patient, in no acute distress, nondiaphoretic, well-developed well-nourished. SKIN: Capillary reflex less than 2 seconds. HEENT: Normocephalic. PERRLA. EOMI. Nares patent. Mucous membranes moist. Neck is supple without nuchal rigidity. HEART: Tachycardic irregularly irregular LUNGS: Clear to auscultation bilaterally without wheezes, rales or rhonchi. No retractions or accessory muscle use. ABDOMEN: Positive bowel sounds x 4. Normal tympanic percussion. Soft, nontender, without masses or organomegaly. Meeks sign negative. No guarding or rebound tenderness. no CVA tenderness MUSCULOSKELETAL: No gross musculoskeletal defects. NEURO: Patient was alert and oriented to person place and time. No focal neurological deficits. Course Administered Medications Discontinued Medications Diltiazem HCl (Diltiazem Hcl 5 Mg/Ml 5 Ml Vial) Confirm Administered Dose 25 mg IV .STKuaidi Dache-MED ONE Stop: 02/10/24 05:15 Last Admin: 02/10/24 05:19 Dose: Not Given Documented By: JUNE Diltiazem HCl (Diltiazem Hcl 5 Mg/Ml 5 Ml Vial) 10 mg IV NOW STA Stop: 02/10/24 05:14 Last Admin: 02/10/24 05:16 Dose: 10 mg Documented By: JUNE Co-signed By: WALDO Diltiazem HCl (Diltiazem Hcl 5 Mg/Ml 5 Ml Vial) 10 mg IV NOW STA Stop: 02/10/24 05:49 Last Admin: 02/10/24 05:50 Dose: 10 mg Documented By: JUNE Co-signed By: REBEL Sodium Chloride (Nss) 1,000 mls @ 999 mls/hr IV .Q1H1M STA Stop: 02/10/24 06:13 Last Infusion: 02/10/24 05:46 Dose: Infused Documented By: Admin: 02/10/24 05:16 Dose: 999 mls/hr Documented By: JUNE Critical Care Time Critical Care Time: Yes Total Critical Care Time: 35 I have personally spent 35 minutes of critical care time in the direct management of this patient. This includes bedside care, interpretation of diagnostic studies, and testing, discussion with consultants, patient, and family members, and other required patient management activities. This 35 minutes is in excess of all separately billable procedures. Medical Decision Making Medical Records Attestation: I reviewed the patient's medical records. Home Medications Current Medication List: was personally reviewed by me Laboratory Data Attestation: I reviewed the patient's lab results. 02/10/24 05:15 02/10/24 05:15 Lab Results 02/10/24 Range/Units 05:15 WBC 10.91 H (4.8-10.8) K/ul RBC 5.07 (4.70-6.10) M/uL Hgb 16.0 (14.0-18.0) g/dl Hct 46.4 (42.0-52.0) % MCV 91.5 (80.0-100.0) fL MCH 31.6 (25.0-34.0) pg MCHC 34.5 (32.0-36.0) g/dL RDW Std Deviation 42.2 (36.4-46.3) fL RDW Coeff of Veronique 12.6 (11.5-14.5) % Plt Count 303 (130-400) K/uL MPV 9.1 L (9.4-12.4) fL Immature Gran % (Auto) 0.3 % Neut % (Auto) 62.6 % Lymph % (Auto) 17.8 % Walton % (Auto) 7.5 % Eos % (Auto) 11.0 % Baso % (Auto) 0.8 % Neut # (Auto) 6.83 H (1.40-6.50) K/uL Lymph # (Auto) 1.94 (1.20-3.40) K/uL Walton # (Auto) 0.82 H (0.11-0.59) K/uL Eos # (Auto) 1.20 H (0.00-0.50) K/uL Baso # (Auto) 0.09 (0.00-0.20) K/uL Immature Gran # (Auto) 0.03 (0.01-0.20) K/uL Sodium 141 (136-145) mmol/L Potassium 3.9 (3.5-5.1) mmol/L Chloride 105 (98-107) mmol/L Carbon Dioxide 30 (21-32) mmol/L Anion Gap 6 (3-11) BUN 14 (6-23) mg/dl Creatinine 1.05 (0.6-1.4) mg/dl Est Cr Clr Drug Dosing 134.8 ml/min Est GFR ( Amer) 112.2 ml/min Est GFR (Non-Af Amer) 96.8 ml/min BUN/Creatinine Ratio 13.3 (10-20) Glucose 121 H (70-99(Fasting)) mg/dl Calcium 9.7 (8.6-10.3) mg/dl Magnesium 2.0 (1.7-2.4) mg/dl Total Bilirubin 0.6 (0.2-1.0) mg/dl AST 27 (13-39) U/L ALT 33 (7-52) U/L Alkaline Phosphatase 83 (34-104) U/L Troponin I High Sens 6.0 (0-20) pg/ml Total Protein 7.1 (6.0-8.3) gm/dl Albumin 4.6 (3.4-5.0) gm/dl Globulin 2.5 (2.5-4.0) gm/dl Albumin/Globulin Ratio 1.8 (0.9-2) TSH 1.839 (0.300-4.500) uIu/ml Imaging Data Attestation: I personally reviewed and interpreted this imaging study as follows: MDM Narrative Prior records/ancillary studies reviewed. Triage Nursing notes reviewed. Additional history obtained from family. The patient's history was concerning for palpitations. Differential diagnosis: Etiologies such as premature contractions, electrolyte abnormality, cardiac dysrhythmia, thyroid dysfunction, pulmonary embolism, infection, gastrointestinal, as well as others were entertained. Physical examination: Benign as above. ER treatment provided: Cardizem IV and drip, IV fluids On reassessment the patient felt better. Diagnostic interpretation by me: An order was placed for continuous cardiac monitoring. The monitor shows a rate of 60-1 80 with a A-fib RVR rhythm per my interpretation. The electrocardiogram was ordered for palpitaions ECG: Irregularly irregular with no acute ST changes, rate of 128. Impression A- fib RVR with incomplete right bundle independently interpreted by myself The labs Independently Interpreted by myself revealed no worrisome leukocytosis, stable H&H Imaging studies: Chest x-ray with no acute consolidation, pneumothorax or free air per my independent interpretation Consultation: A consultation was placed with the hospitalist. The case was discussed and diagnostics were reviewed. The patient was evaluated in the ER for further treatment. This appears to be consistent with A-fib RVR. This is most likely related to patient's recent alcohol ingestion. Patient was given 2 rounds of Cardizem and started on a drip. Medicine was consulted and the case is discussed. He will be admitted to the medical service. Patient is agreeable. By the evaluation outlined above emergent etiologies such as electrolyte abnormality, thyroid dysfunction, pulmonary embolism, infection, as well as others were deemed relatively unlikely. The pt informed about the findings as listed above. All questions were answered and pleased with the treatment. The chart was completed utilizing [employer] Speech voice recognition software. Grammatical errors, random word insertions, pronoun errors, and incomplete sentences are an occassional consequence of this system due to software limitations, ambient noise, and hardware issues. Any formal questions or concerns about the content, text, or information contained within the body of this dictation should be directly addressed to the physician trust administrative assistant for clarification. Impression & Plan Atrial fibrillation with RVR Discharge Plan Visit Data Chief Complaint: Cardiac Assessment Stated Complaint: IRREGULAR AND RAPID HEART RATE ED Provider: Chanda Forde ED Midlevel Provider: Gege Horner Discharge Problem: Atrial fibrillation with RVR Patient Disposition: Admitted As Inpatient Condition: Good Forms Stand Alone Forms: [facility] Prescriptions Prescriptions: No Action metoprolol tartrate 25 mg tablet 12.5 mg PO BID Eliquis 5 mg Tablet 5 mg PO BID 30 Days Qty: 60 1RF Referrals Referrals: Helen Kennedy MD [Primary Care Provider] -
[2024-02-10 06:03] LABS: Thyroid Stimulating Hormone 1.839 uIu/ml (0.300-4.500)
[2024-02-10] MEDS: METOPROLOL TARTRATE 1 MG/ML VIAL IV STA (06:28)
[2024-02-10] MEDS: dilTIAZem HCL 125 MG in DEXTROSE 5% 100 ML IV SCH (06:28)
--- NOTE | 2024-02-10 06:57 | History & Physical Report ---
Date of Service February 10, 2024 Assessment & Plan (1) Atrial fibrillation with RVR: Plan: Recurrent atrial fibrillation Secondary to EtOH binging hx congenital heart disease (ASD, tricuspid valve abnormality) status post surgery Valvular heart disease (bicuspid aortic valve, trace AR) hyperglycemia rule out DM Past tobacco abuse OBS PCU Titrate home beta-mariano Wean off Cardizem drip Cardiology consult Re: Recurrent A-fib N.p.o. until patient seen by cardiology in anticipation of cardioversion procedure Check hemoglobin A1c NELSON S at risk protocol, DT precautions DVT prophylaxis. Eliquis Full code Text document was generated using Preo voice recognition software. It may contain grammatical or spelling errors. Kindly contact undersigned for clarification of any documentation item in question. History of Present Illness Chief Complaint: A-fib Primary Care Provider: Helen Kennedy MD History obtained from patient and records. Medical history significant for PAF on Eliquis, congenital heart disease (ASD status post surgery, tricuspid valve abnormality) status post surgery, bicuspid aortic valve, trace AR), past tobacco abuse Last confinement July 2022 for new onset A-fib. Patient with spontaneous conversion during confinement. Patient discharged on Eliquis. Patient woke up this morning with palpitations similar to A-fib episode. Denies chest pain, SOB. Compliant with home meds. Admits to heavy alcohol intake yesterday. Patient noted to be in rapid A. fib upon arrival at the ER. IV Cardizem infusion initiated. 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 Allergies Allergy/AdvReac Type Severity Reaction Status Date / Time No Known Allergies Allergy Verified 11/10/22 08:33 Home Medications Medication Instructions Recorded Confirmed Type apixaban 5 mg tablet (Eliquis) 5 mg PO BID 30 days #60 tabs 08/02/22 02/10/24 Rx metoprolol tartrate 25 mg tablet 12.5 mg PO BID 08/02/22 02/10/24 History Past Med/Surg History Problem List Paroxysmal atrial fibrillation Encounter for pre-operative examination Palpitations (Acute) Atrial fibrillation with RVR (Acute) Eliquis/metoprolol Following with [facility] Cardiology History of repair of congenital atrial septal defect (ASD) (Acute) [place] [place] Atrial fibrillation with RVR Eliquis/metoprolol Following with [facility] Cardiology History of congenital anomaly of heart ASD repair (2009) Surgical History History of repair of congenital atrial septal defect (ASD) [place] [place] of wisdom tooth extraction Family History Other No family history of adverse response to anesthesia Social History Smoking Status: Never smoker Tobacco Type: E-cigarettes / Vaping Second Hand Exposure: No; Do You Dip or Chew Tobacco: No; Hx Alcohol Use: Yes Hx Substance Use: No Preferred Language: Chinese Communication Ability: Effective Thermocouple Tester Required: No Beliefs That Will Affect Care: None marital status: Single Current Living Situation: Significant Other Current Living Situation Comment: 2 story house Feels Safe at Home: Yes Assistive Devices: None Review of Systems Review of Systems: As per HPI, all other systems reviewed and negative Physical Exam Physical Exam: GENERAL: Comfortable, obese, pleasant, no respiratory distress SKIN: Normal color, warm HEENT: [place] palpebral conjunctivae, no ptosis, dry buccal mucosa NECK : Supple, no tenderness CHEST : CTA, no tenderness HEART : Irregular, tachycardic, no obvious murmurs ABDOMEN: Some distention, nontender EXTREMITIES : No LE swelling/tenderness, no other conspicuous deformities noted NEUROLOGIC : Coherent, no facial asymmetry, no other gross focality Results & Data Results & Data Vital Signs (Past 12 Hours) Vital Signs Temp Pulse Pulse Resp BP BP Pulse Ox 02/10/24 06:28 107 H 125/91 02/10/24 05:46 135 H 18 148/104 H 97 02/10/24 05:40 97 02/10/24 05:22 98 H 02/10/24 05:21 99 H 20 120/84 94 02/10/24 05:04 36.6 C 128 H 20 128/84 98 O2 Del Method 02/10/24 06:28 02/10/24 05:46 Room Air 02/10/24 05:40 Room Air 02/10/24 05:22 02/10/24 05:21 Room Air 02/10/24 05:04 Room Air Laboratory Results Laboratory Results WBC 10.91 K/ul (4.8-10.8) H 02/10/24 05:15 RBC 5.07 M/uL (4.70-6.10) 02/10/24 05:15 Hgb 16.0 g/dl (14.0-18.0) 02/10/24 05:15 Hct 46.4 % (42.0-52.0) 02/10/24 05:15 MCV 91.5 fL (80.0-100.0) 02/10/24 05:15 MCH 31.6 pg (25.0-34.0) 02/10/24 05:15 MCHC 34.5 g/dL (32.0-36.0) 02/10/24 05:15 RDW Std Deviation 42.2 fL (36.4-46.3) 02/10/24 05:15 RDW Coeff of Veronique 12.6 % (11.5-14.5) 02/10/24 05:15 Plt Count 303 K/uL (130-400) 02/10/24 05:15 MPV 9.1 fL (9.4-12.4) L 02/10/24 05:15 Immature Gran % (Auto) 0.3 % 02/10/24 05:15 Neut % (Auto) 62.6 % 02/10/24 05:15 Lymph % (Auto) 17.8 % 02/10/24 05:15 [place] % (Auto) 7.5 % 02/10/24 05:15 Eos % (Auto) 11.0 % 02/10/24 05:15 Baso % (Auto) 0.8 % 02/10/24 05:15 Neut # (Auto) 6.83 K/uL (1.40-6.50) H 02/10/24 05:15 Lymph # (Auto) 1.94 K/uL (1.20-3.40) 02/10/24 05:15 [place] # (Auto) 0.82 K/uL (0.11-0.59) H 02/10/24 05:15 Eos # (Auto) 1.20 K/uL (0.00-0.50) H 02/10/24 05:15 Baso # (Auto) 0.09 K/uL (0.00-0.20) 02/10/24 05:15 Immature Gran # (Auto) 0.03 K/uL (0.01-0.20) 02/10/24 05:15 Sodium 141 mmol/L (136-145) 02/10/24 05:15 Potassium 3.9 mmol/L (3.5-5.1) 02/10/24 05:15 Chloride 105 mmol/L (98-107) 02/10/24 05:15 Carbon Dioxide 30 mmol/L (21-32) 02/10/24 05:15 Anion Gap 6 (3-11) 02/10/24 05:15 BUN 14 mg/dl (6-23) 02/10/24 05:15 Creatinine 1.05 mg/dl (0.6-1.4) 02/10/24 05:15 Est Cr Clr Drug Dosing 134.8 ml/min 02/10/24 05:15 Est GFR ( Amer) 112.2 ml/min 02/10/24 05:15 Est GFR (Non-Af Amer) 96.8 ml/min 02/10/24 05:15 BUN/Creatinine Ratio 13.3 (10-20) 02/10/24 05:15 Glucose 121 mg/dl (70-99(Fasting)) H 02/10/24 05:15 Calcium 9.7 mg/dl (8.6-10.3) 02/10/24 05:15 Magnesium 2.0 mg/dl (1.7-2.4) 02/10/24 05:15 Total Bilirubin 0.6 mg/dl (0.2-1.0) 02/10/24 05:15 AST 27 U/L (13-39) 02/10/24 05:15 ALT 33 U/L (7-52) 02/10/24 05:15 Alkaline Phosphatase 83 U/L (34-104) 02/10/24 05:15 Troponin I High Sens 6.0 pg/ml (0-20) 02/10/24 05:15 Total Protein 7.1 gm/dl (6.0-8.3) 02/10/24 05:15 Albumin 4.6 gm/dl (3.4-5.0) 02/10/24 05:15 Globulin 2.5 gm/dl (2.5-4.0) 02/10/24 05:15 Albumin/Globulin Ratio 1.8 (0.9-2) 02/10/24 05:15 TSH 1.839 uIu/ml (0.300-4.500) 02/10/24 05:15 Diagnostic Findings Chest x-ray as per my interpretation cardiomegaly EKG as per my interpretation : Rate 130, A-fib, LAD, LAFB, incomplete RBBB, no ischemia
[2024-02-10] MEDS ORDERED: PROMETHAZINE 6.25 MG/50.25 ML BAG IV PRN (07:07)
[2024-02-10] MEDS ORDERED: ACETAMINOPHEN 325 MG TAB PO PRN (07:07)
[2024-02-10] MEDS ORDERED: oxyCODONE HCL IR 5 MG TAB (IMMEDIATE RELEASE) PO PRN (07:07)
[2024-02-10] MEDS ORDERED: LORazepam 2 MG/1 ML VIAL IV PRN (07:07)
[2024-02-10] MEDS: THIAMINE HCL 100 MG in SYRINGE 9 ML IV STA (07:57)
--- NOTE | 2024-02-10 08:13 | XRay Report ---
SINGLE VIEW CHEST CLINICAL HISTORY: Atrial fibrillation. FINDINGS: An AP, portable, upright chest radiograph is compared to study dated 08/01/2002. The patient is status post midline sternotomy. The heart is mildly enlarged. The pulmonary vasculature is noncon gested. The lungs and pleural spaces are clear. No pneumothorax is seen. The bony thorax is grossly i ntact. IMPRESSION: Mild cardiomegaly with no active disease in the chest. ACT 112: Negative or not required by law. Electronically signed by: Raphael Loyd M.D. 02/10/2024 8:11 AM
[2024-02-10 08:24] LABS: Estimated Average Glucose 100 mg/dl; Hemoglobin A1C 5.1 % (4.5-5.6)
[2024-02-10] MEDS: POTASSIUM CHLORIDE 20 MEQ in LACTATED RINGER'S 1,000 ML IV ONE (09:14)
[2024-02-10] MEDS ORDERED: APIXABAN 5 MG TABLET PO ONE (11:10)
--- NOTE | 2024-02-10 11:19 | Cardiology Consultation ---
Date of Consultation February 10, 2024 Assessment & Plan (1) Paroxysmal atrial fibrillation: (2) Palpitations: (3) History of repair of congenital atrial septal defect (ASD): Plan 28-year male with history of sinus venosus ASD repair at age 14presents for evaluation of recurrent paroxysmal atrial fibrillation with rapid ventricular response precipitated by excessive alcohol intake. Heart rates improved with metoprolol and diltiazem. Compliant with Eliquis 5 mg twice daily. Recommend additional 25 mg of oral metoprolol tartrate now. He will receive a.m. dose of Eliquis 5 mg as well. Continue IV hydration and diltiazem infusion at 5 mg/h. If patient does not spontaneously convert to normal sinus rhythm in the next 24 hours, will proceed with elective external direct-current cardioversion in the a.m. 02/11/2024. N.p.o. except medications after midnight today. History of Present Illness Reason for Consultation: Atrial fibrillation Requesting Physician: Dr. 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 Admits to consuming excessive alcohol on Sunday evening and moderate alcohol intake last night. At approximately 2 AM today he awoke with palpitations. Came to the ER for further evaluation and treatment. In the ER atrial fibrillation with rapid ventricular response confirmed. Treated with IV diltiazem, and IV metoprolol. And intravenous IV diltiazem infusion was initiated at 5 mg/h. Heart rate approximately 100 bpm with mild palpitations currently. Notes occasional noncompliance with outpatient metoprolol (12.5 mg twice daily. Reports compliance with twice daily Eliquis without interruption. Denies chest pain or shortness of breath. No orthopnea, PND, or lower extremity edema. Offers no other concerns/complaints. Allergies Allergy/AdvReac Type Severity Reaction Status Date / Time No Known Allergies Allergy Verified 11/10/22 08:33 Home Medications Medication Instructions Recorded Confirmed Type apixaban 5 mg tablet (Eliquis) 5 mg PO BID 30 days #60 tabs 08/02/22 02/10/24 Rx metoprolol tartrate 25 mg tablet 12.5 mg PO BID 08/02/22 02/10/24 History Patient History Medical History History of congenital anomaly of heart ASD repair (2009) Surgical History History of wisdom tooth extraction Family History Other No family history of adverse response to anesthesia Social History Smoking Status: Never smoker Tobacco Type: E-cigarettes / Vaping Second Hand Exposure: No; Do You Dip or Chew Tobacco: No; Hx Alcohol Use: Yes Hx Substance Use: No Preferred Language: Kinyarwanda Communication Ability: Effective Nursing Teacher Required: No Beliefs That Will Affect Care: None marital status: Single Current Living Situation: Significant Other Current Living Situation Comment: 2 story house Feels Safe at Home: Yes Assistive Devices: None Review of Systems Review of Systems: All systems reviewed & are unremarkable except as noted in Subjective Physical Exam Constitutional: well nourished; no acute distress Respiratory: normal respiratory effort; no respiratory distress, no labored breathing and no retractions Auscultation: no crackles, no rales, no rhonchi and no wheezes Cardiovascular: Rate/Rhythm: + tachycardic and + irregularly irregular Heart Sounds: normal S1 and normal S2; no murmur Vessels: radial pulses present; no JVD and no carotid bruit Extremities: no edema Gastrointestinal (Abdomen): Inspection/Auscultation: abdomen not distended Percussion/Palpation: abdomen soft; abdomen nontender, no guarding and abdomen not rigid Neurologic: CN's II-XI intact bilaterally and moves all extremities; no focal motor deficits Results & Data Vital Signs (Past 12 Hours) Vital Signs Temp Pulse Pulse Resp BP BP Pulse Ox 02/10/24 10:30 102 H 18 108/78 98 02/10/24 10:30 102 H 18 96 02/10/24 10:09 55 L 18 99/69 L 96 02/10/24 09:24 86 02/10/24 07:30 95 H 18 112/70 95 02/10/24 06:28 107 H 125/91 02/10/24 05:46 135 H 18 148/104 H 97 02/10/24 05:40 97 02/10/24 05:22 98 H 02/10/24 05:21 99 H 20 120/84 94 02/10/24 05:04 36.6 C 128 H 20 128/84 98 O2 Del Method 02/10/24 10:30 Room Air 02/10/24 10:30 Room Air 02/10/24 10:09 Room Air 02/10/24 09:24 02/10/24 07:30 Room Air 02/10/24 06:28 02/10/24 05:46 Room Air 02/10/24 05:40 Room Air 02/10/24 05:22 02/10/24 05:21 Room Air 02/10/24 05:04 Room Air Laboratory Results Cardiac Enzymes 02/10/24 Range/Units 05:15 AST 27 (13-39) U/L Troponin I High Sens 6.0 (0-20) pg/ml CBC 02/10/24 Range/Units 05:15 WBC 10.91 H (4.8-10.8) K/ul RBC 5.07 (4.70-6.10) M/uL Hgb 16.0 (14.0-18.0) g/dl Hct 46.4 (42.0-52.0) % Plt Count 303 (130-400) K/uL Neut # (Auto) 6.83 H (1.40-6.50) K/uL Lymph # (Auto) 1.94 (1.20-3.40) K/uL [place] # (Auto) 0.82 H (0.11-0.59) K/uL Eos # (Auto) 1.20 H (0.00-0.50) K/uL Baso # (Auto) 0.09 (0.00-0.20) K/uL Comprehensive Metabolic Panel 02/10/24 Range/Units 05:15 Sodium 141 (136-145) mmol/L Potassium 3.9 (3.5-5.1) mmol/L Chloride 105 (98-107) mmol/L Carbon Dioxide 30 (21-32) mmol/L BUN 14 (6-23) mg/dl Creatinine 1.05 (0.6-1.4) mg/dl Glucose 121 H (70-99(Fasting)) mg/dl Calcium 9.7 (8.6-10.3) mg/dl AST 27 (13-39) U/L ALT 33 (7-52) U/L Alkaline Phosphatase 83 (34-104) U/L Total Protein 7.1 (6.0-8.3) gm/dl Albumin 4.6 (3.4-5.0) gm/dl Intake and Output 02/09/24 02/10/24 02/10/24 22:59 06:59 14:59 Intake Total 1000 / 1000 Balance 1000 / 1000 Intake: IV 1000 / 1000 Sodium Chloride 0.9% 1,000 ml @ 1000 / 1000 999 mls/hr IV .Q1H1M STA Rx#: [id number] Other: Weight 109 kg
[2024-02-10] MEDS: MULTIVITAMIN TAB PO SCH (11:43)
[2024-02-10] MEDS: METOPROLOL TARTRATE 25 MG TAB PO SCH (11:43)
[2024-02-10] MEDS: APIXABAN 5 MG TABLET PO SCH (11:43)
[2024-02-10] MEDS: FOLIC ACID 1 MG TAB PO SCH (11:43)
[2024-02-10] MEDS: METOPROLOL TARTRATE 25 MG TAB PO STA (11:56)
--- NOTE | 2024-02-10 13:07 | Communication Note ---
Date of Service: February 10, 2024 Patient seen and examined at bedside He is comfortably lying on the bed; not in distress He is currently on Cardizem drip of 5 mg/h; ventricular rate varies from 90s to 120s. Denies chest pain, shortness of breath or dizziness. On physical examination; Constitutional: WD/WN, vitals as above, NAD, sitting up in bed, pleasant, conversing easily Respiratory: normal respiratory effort, lungs clear to auscultation, no wheeze, rales, rhonchi. Normal insp/exp effort, no accessory muscle use Cardiovascular: irregular, no murmur, no edema Vessels: no JVD or carotid bruit Abdomen: normal bowel sounds, soft, nontender, no hepatosplenomegaly Musculoskeletal: no cyanosis or clubbing, extremities motor strength 5/5 Skin: no rashes, warm and dry normal turgor Neurologic: PERRL, EOMI, accommodation nl, no face palsy, no dysarthria CN's II- XI intact bilaterally and moves all extremities Psychiatric: A+Ox3, euthymic affect Assessment/plan Atrial fibrillation with RVR History of repair of congenital atrial septal defect. Patient presents with atrial fibrillation with rapid ventricular rate Currently on Cardizem drip Continue on IV fluids at 125 cc/h N.p.o. from midnight for possible cardioversion Continue Eliquis Please note the above document was generated using voice recognition software. It may contain grammatical, syntax or spelling errors. Any formal questions or concerns about the content, text or information contained within the body of this dictation should be directly addressed to the provider for clarification
[2024-02-10] MEDS: LACTATED RINGER'S 1,000 ML IV SCH (13:15)
[2024-02-10 13:23] VITALS: BP 133/77; PULSE 94; RESP 19; TEMP 97.5; O2SAT 92
[2024-02-10] MEDS: STAT IV Infusion **Titration per Protocol STA (14:15)
[2024-02-10] MEDS: POTASSIUM CHLORIDE CRTAB 20 MEQ TABCR PO STA (14:19)
--- NOTE | 2024-02-10 16:08 | Discharge Summary ---
Date of Service February 10, 2024 Admission HPI Per Admitting Provider History obtained from patient and records. Medical history significant for PAF on Eliquis, congenital heart disease (ASD status post surgery, tricuspid valve abnormality) status post surgery, bicuspid aortic valve, trace AR), past tobacco abuse Last confinement July 2022 for new onset A-fib. Patient with spontaneous conversion during confinement. Patient discharged on Eliquis. Patient woke up this morning with palpitations similar to A-fib episode. Denies chest pain, SOB. Compliant with home meds. Admits to heavy alcohol intake yesterday. Patient noted to be in rapid A. fib upon arrival at the ER. IV Cardizem infusion initiated. 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 Admission Exam Per Admitting Provider GENERAL: Comfortable, obese, pleasant, no respiratory distress SKIN: Normal color, warm HEENT: [place] palpebral conjunctivae, no ptosis, dry buccal mucosa NECK : Supple, no tenderness CHEST : CTA, no tenderness HEART : Irregular, tachycardic, no obvious murmurs ABDOMEN: Some distention, nontender EXTREMITIES : No LE swelling/tenderness, no other conspicuous deformities noted NEUROLOGIC : Coherent, no facial asymmetry, no other gross focality Principal Diagnosis Atrial fibrillation with RVR Discharge Exam Constitutional: WD/WN, vitals as above, NAD, sitting up in bed, pleasant, conversing easily Respiratory: normal respiratory effort, lungs clear to auscultation, no wheeze, rales, rhonchi. Normal insp/exp effort, no accessory muscle use Cardiovascular: RRR, no murmur, no edema Vessels: no JVD or carotid bruit Chest: normal inspection of chest Abdomen: normal bowel sounds, soft, nontender, no hepatosplenomegaly Musculoskeletal: no cyanosis or clubbing, extremities motor strength 5/5 Skin: no rashes, warm and dry normal turgor Neurologic: PERRL, EOMI, accommodation nl, no face palsy, no dysarthria CN's II- XI intact bilaterally and moves all extremities Psychiatric: A+Ox3, euthymic affect Discharge Data Allergies Allergy/AdvReac Type Severity Reaction Status Date / Time No Known Allergies Allergy Verified 11/10/22 08:33 Consultations 02/10/24 06:18 ED Decision to Admit Stat 02/10/24 07:07 Consult Cardiology Routine 02/10/24 10:21 Consult Cardiology Routine Hospital Course (1) Atrial fibrillation with RVR: Plan Patient is a 28-year-old male with past medical history of atrial septal defect repair and paroxysmal atrial fibrillation presented to the hospital with atrial fibrillation with rapid ventricular rate. He was admitted to telemetry floor; started on Cardizem drip. Initial plan was to do possible cardioversion if he continued to be in atrial fibrillation. However, patient converted to normal sinus rhythm. After discussion with cardiology, dose of metoprolol was increased to 25 mg twice a day. Patient was discharged home with instructions to follow-up with his primary care doctor Please note the above document was generated using voice recognition software. It may contain grammatical, syntax or spelling errors. Any formal questions or concerns about the content, text or information contained within the body of this dictation should be directly addressed to the provider for clarification Total Time Total Time Spent Total Time Spent (In Minutes): 35 Total Time Includes: Examination of the Patient, Discharge Planning, Medication Reconciliation, Communication With Other Providers and Other Discharge Plan Discharge Items Patient Disposition: Home - Self-Care Reason For Visit: AF Discharge Diagnosis: Atrial fibrillation with RVR Condition on Discharge: Good Activity: Resume your previous activity Non-emergency contact: Primary Care Provider Call non-emergency contact if: you have any medication questions and your symptoms worsen Follow-up/Referrals: Helen Kennedy MD [Primary Care Provider] - Diet: Regular Addtl Attending Provider Instructions: You were admitted to the hospital due to increasing your heart rate due to atrial fibrillation. Your evaluated by cardiology during the hospitalization. They recommend increasing metoprolol to 25 mg twice a day. A prescription has been sent to the pharmacy. Pending Studies at Discharge: No Stand-Alone Forms: [employer] Smoking Cessation Medications and DC Order Prescriptions: Continued Eliquis 5 mg Tablet 5 mg PO BID 30 Days Qty: 60 1RF Changed metoprolol tartrate 25 mg tablet 25 mg PO BID Qty: 60 0RF Discharge Orders: Discharge Order (Routine); Ordered 02/10/24 Ordered By: Farshad Christensen Admission Data Admit Date/Time: 02/10/24 07:05 Attending Provider: Farshad Christensen Admit Provider: Izaiah Uribe Primary Care Provider: Helen Kennedy Other Providers: Deana Macias; Chaitanya Hunter; Austin Hamilton; Sai Jensen; Dedrick Leonard; Monty Bragg; Joyce Calderon; Brooke Hill; Patricia Jerome; Deana Fraire; Fran Arriaza; Manas Williamson; Kandy Turner; Jinny Quesada; Dorene Lehman; Pacheco Gamble; Refugio Rubio; Silvia Fleming; Izaiah Uribe
--- NOTE | 2024-02-10 16:54 | Electrocardiogram Report ---
Test Reason : Blood Pressure : */* mmHG Vent. Rate : 128 BPM Atrial Rate : * BPM P-R Int : * ms QRS Dur : 106 ms QT Int : 304 ms P-R-T Axes : * -19 29 degrees QTcB Int : 443 ms Atrial fibrillation with rapid ventricular response Incomplete right bundle branch block Abnormal ECG When compared with ECG of 02-Aug-2022 10:40, Atrial fibrillation has replaced Sinus rhythm Vent. rate has increased by 71 bpm Criteria for Septal infarct are no longer Present Confirmed by Prisca Rodriguez ([id number]) on 02/10/2024 4:54:13 PM Referred By: REFERRED SELF Confirmed By: Prisca Rodriguez
[2024-02-11] MEDS ORDERED: THIAMINE HCL 100 MG in SYRINGE 9 ML IV SCH (09:00)
== END 2024-02-10 16:47 | disposition home or self-care (01) ==
LOC: ED 05:00 → EDINP 05:00 → 2E 10:21